=== PATIENT | female | born 1935 | race Caucasian/White ===

== ENCOUNTER 2020-07-05 16:35 | Inpatient (IN) | payer MEDICARE, BC ==
--- NOTE | 2020-07-05 17:19 | ED ---
General Adult HPI - General Chief complaint: Abdominal Pain Stated complaint: right side breast/rib pain Time Seen by Provider: 07/05/20 16:35 Source: patient, family, RN notes reviewed, old records reviewed Mode of arrival: wheelchair Limitations: no limitations - History of Present Illness Initial comments: This is an 85-year-old female presents emergency Department stating that about 12:30 this afternoon she started having some right upper quadrant abdominal pain and states it is very painful. Patient denies any recent injury. Patient denies increased pain with movement. Patient states she's not nauseated not vomiting and has had no diarrhea. Patient denies any chest pain difficulty breathing shortness of breath. Patient denies any recent fever or chills. Patient denies any dysuria hematuria urinary frequency. Patient denies any back pain. Patient denies doing any heavy lifting or activity it's outside of her normal activities. - Related Data Home Medications Medication Instructions Recorded Confirmed Alendronate Sodium [Fosamax] 70 mg PO MO 11/09/15 11/12/15 Furosemide [Lasix] 20 mg PO DAILY 11/09/15 11/12/15 Isosorbide Mononitrate ER [Imdur] 30 mg PO DAILY 11/09/15 11/09/15 Simvastatin [Zocor] 10 mg PO HS 11/09/15 11/12/15 amLODIPine [Norvasc] 5 mg PO DAILY 11/09/15 11/09/15 Allergies Allergy/AdvReac Type Severity Reaction Status Date / Time cephalexin monohydrate Allergy Rash/Hives Verified 07/05/20 16:37 [From Keflex] Review of Systems ROS Statement: Those systems with pertinent positive or pertinent negative responses have been documented in the HPI. ROS Other: All systems not noted in ROS Statement are negative. Past Medical History Past Medical History: Cancer, Diabetes Mellitus, GERD/Reflux, Hyperlipidemia, Hypertension, Osteoarthritis (OA) Additional Past Medical History / Comment(s): UTERINE CANCER, COLON CANCER, STRESS INCONTINENCE, DIET CONTROLLED DIABETIC History of Any Multi-Drug Resistant Organisms: None Reported Past Surgical History: Bowel Resection, Breast Surgery, Heart Catheterization, Hernia Repair, Hysterectomy Past Anesthesia/Blood Transfusion Reactions: No Reported Reaction Smoking Status: Current every day smoker Past Alcohol Use History: Rare Past Drug Use History: None Reported - Past Family History Mother Family Medical History: No Reported History General Exam - General Exam Comments Initial Comments: GENERAL: Patient is well-developed and well-nourished. Patient is nontoxic and well- hydrated and is in mild distress. ENT: Neck is soft and supple. No significant lymphadenopathy is noted. Oropharynx is clear. Moist mucous membranes. Neck has full range of motion without eliciting any pain. EYES: The sclera were anicteric and conjunctiva were pink and moist. Extraocular movements were intact and pupils were equal round and reactive to light. Eyelids were unremarkable. PULMONARY: Unlabored respirations. Good breath sounds bilaterally. No audible rales rhonchi or wheezing was noted. CARDIOVASCULAR: There is a regular rate and rhythm without any murmurs gallops or rubs. Patient has no pain of the ribs. ABDOMEN: Slight right upper quadrant abdominal pain SKIN: Skin is clear with no lesions or rashes and otherwise unremarkable. NEUROLOGIC: Patient is alert and oriented x3. Cranial nerves II through XII are grossly intact. Motor and sensory are also intact. Normal speech, volume and content. Symmetrical smile. MUSCULOSKELETAL: Normal extremities with adequate strength and full range of motion. LYMPHATICS: No significant lymphadenopathy is noted PSYCHIATRIC: Normal psychiatric evaluation. Limitations: no limitations Course Vital Signs 07/05/20 16:37 Temperature 97.6 F Pulse Rate 70 Respiratory 16 Rate Blood Pressure 127/64 O2 Sat by Pulse 97 Oximetry Medical Decision Making - Medical Decision Making EKG shows sinus rhythm with occasional PVC at a rate of 66 bpm NV interval 152 QRS is 82 QT interval 418 QTC is 438 per patient's EKG shows no ST segment depression Patient's gallbladder scan shows multiple gallstones and continue to be tender the right upper quadrant. Patient could have early cholecystitis so I spoke with Dr. Azul agreed to admit the patient admitted the patient I consult the surgery. - Lab Data Result diagrams: 07/05/20 17:18 07/05/20 17:18 Lab Results 07/05/20 07/05/20 07/05/20 Range/Units 17:18 17:18 17:18 WBC 8.4 (3.8-10.6) k/uL RBC 4.24 (3.80-5.40) m/uL Hgb 13.4 (11.4-16.0) gm/dL Hct 41.2 (34.0-46.0) % MCV 97.2 (80.0-100.0) fL MCH 31.7 (25.0-35.0) pg MCHC 32.6 (31.0-37.0) g/dL RDW 13.2 (11.5-15.5) % Plt Count 213 (150-450) k/uL Neutrophils % 76 % Lymphocytes % 14 % Monocytes % 8 % Eosinophils % 1 % Basophils % 0 % Neutrophils # 6.4 (1.3-7.7) k/uL Lymphocytes # 1.2 (1.0-4.8) k/uL Monocytes # 0.6 (0-1.0) k/uL Eosinophils # 0.1 (0-0.7) k/uL Basophils # 0.0 (0-0.2) k/uL Sodium 135 L (137-145) mmol/L Potassium 4.8 (3.5-5.1) mmol/L Chloride 106 (98-107) mmol/L Carbon Dioxide 23 (22-30) mmol/L Anion Gap 6 mmol/L BUN 15 (7-17) mg/dL Creatinine 0.54 (0.52-1.04) mg/dL Est GFR (CKD-EPI)AfAm >90 (>60 ml/min/1.73 sqM) Est GFR (CKD-EPI)NonAf 86 (>60 ml/min/1.73 sqM) Glucose 105 H (74-99) mg/dL Calcium 9.8 (8.4-10.2) mg/dL Total Bilirubin 0.8 (0.2-1.3) mg/dL AST 34 (14-36) U/L ALT 12 (4-34) U/L Alkaline Phosphatase 58 (38-126) U/L Troponin I (0.000-0.034) ng/mL Total Protein 6.7 (6.3-8.2) g/dL Albumin 3.8 (3.5-5.0) g/dL Amylase <30 L (30-110) U/L Lipase 101 (23-300) U/L Urine Color Yellow Urine Appearance Clear (Clear) Urine pH 5.0 (5.0-8.0) Ur Specific [place] 1.013 (1.001-1.035) Urine Protein Negative (Negative) Urine Glucose (UA) Negative (Negative) Urine Ketones Negative (Negative) Urine Blood Negative (Negative) Urine Nitrite Negative (Negative) Urine Bilirubin Negative (Negative) Urine Urobilinogen <2.0 (<2.0) mg/dL Ur Leukocyte Esterase Negative (Negative) 07/05/20 Range/Units 17:33 WBC (3.8-10.6) k/uL RBC (3.80-5.40) m/uL Hgb (11.4-16.0) gm/dL Hct (34.0-46.0) % MCV (80.0-100.0) fL MCH (25.0-35.0) pg MCHC (31.0-37.0) g/dL RDW (11.5-15.5) % Plt Count (150-450) k/uL Neutrophils % % Lymphocytes % % Monocytes % % Eosinophils % % Basophils % % Neutrophils # (1.3-7.7) k/uL Lymphocytes # (1.0-4.8) k/uL Monocytes # (0-1.0) k/uL Eosinophils # (0-0.7) k/uL Basophils # (0-0.2) k/uL Sodium (137-145) mmol/L Potassium (3.5-5.1) mmol/L Chloride (98-107) mmol/L Carbon Dioxide (22-30) mmol/L Anion Gap mmol/L BUN (7-17) mg/dL Creatinine (0.52-1.04) mg/dL Est GFR (CKD-EPI)AfAm (>60 ml/min/1.73 sqM) Est GFR (CKD-EPI)NonAf (>60 ml/min/1.73 sqM) Glucose (74-99) mg/dL Calcium (8.4-10.2) mg/dL Total Bilirubin (0.2-1.3) mg/dL AST (14-36) U/L ALT (4-34) U/L Alkaline Phosphatase (38-126) U/L Troponin I <0.012 (0.000-0.034) ng/mL Total Protein (6.3-8.2) g/dL Albumin (3.5-5.0) g/dL Amylase (30-110) U/L Lipase (23-300) U/L Urine Color Urine Appearance (Clear) Urine pH (5.0-8.0) Ur Specific [place] (1.001-1.035) Urine Protein (Negative) Urine Glucose (UA) (Negative) Urine Ketones (Negative) Urine Blood (Negative) Urine Nitrite (Negative) Urine Bilirubin (Negative) Urine Urobilinogen (<2.0) mg/dL Ur Leukocyte Esterase (Negative) Disposition Clinical Impression: Right upper quadrant abdominal pain Disposition: ADMITTED IP TO THIS HOSP Referrals: Herberth Sargent DO [Primary Care Provider] - 1-2 days Time of Disposition: 18:39
[2020-07-05 17:52] LABS: Appearance,Urine Clear (Clear); Bilirubin,Urine Negative (Negative); Blood,Urine Negative (Negative); Color,Urine Yellow; Glucose,Urine (UA) Negative (Negative); Ketones,Urine Negative (Negative); Leukocyte Esterase,Urine Negative (Negative); Nitrite,Urine Negative (Negative); Protein,Urine Negative (Negative); Specific Gravity,Urine 1.013 (1.001-1.035); Urobilinogen,Urine <2.0 mg/dL (<2.0)
[2020-07-05 18:01] LABS: Basophils % (A) 0 %; Eosinophils # (A) 0.1 k/uL (0-0.7); Eosinophils % (A) 1 %; HCT 41.2 % (34.0-46.0); HGB 13.4 gm/dL (11.4-16.0); Lymphocytes # (A) 1.2 k/uL (1.0-4.8); Lymphocytes % (A) 14 %; MCH 31.7 pg (25.0-35.0); MCHC 32.6 g/dL (31.0-37.0); MCV 97.2 fL (80.0-100.0); Mean Platelet Volume 7.6; Monocytes # (A) 0.6 k/uL (0-1.0); Monocytes % (A) 8 %; Neutrophils # (A) 6.4 k/uL (1.3-7.7); Neutrophils % (A) 76 %; Platelet Count 213 k/uL (150-450); RBC 4.24 m/uL (3.80-5.40); RDW 13.2 % (11.5-15.5); WBC 8.4 k/uL (3.8-10.6)
[2020-07-05 18:13] LABS: ALT 12 U/L (4-34); AST 34 U/L (14-36); African American GFR (CKD) >90 (>60 ml/min/1.73 sqM); Albumin 3.8 g/dL (3.5-5.0); Alkaline Phosphatase 58 U/L (38-126); Amylase <30 U/L (30-110); Anion Gap 6 mmol/L; Blood Urea Nitrogen 15 mg/dL (7-17); Calcium 9.8 mg/dL (8.4-10.2); Carbon Dioxide 23 mmol/L (22-30); Chloride 106 mmol/L (98-107); Glucose 105 mg/dL (74-99); Non-African American GFR(CKD) 86 (>60 ml/min/1.73 sqM); Potassium 4.8 mmol/L (3.5-5.1); Sodium 135 mmol/L (137-145); Total Bilirubin 0.8 mg/dL (0.2-1.3); Total Protein 6.7 g/dL (6.3-8.2)
--- NOTE | 2020-07-05 18:22 | US ---
EXAMINATION TYPE: US gallbladder DATE OF EXAM: 07/05/2020 COMPARISON: NONE CLINICAL HISTORY: Right upper quadrant abdominal pain. severe RUQ pain today EXAM MEASUREMENTS: Liver Length: 19.6 cm Gallbladder Wall: 0.2 cm CBD: 0.7 cm Right Kidney: 9.2 x 4.4 x 4.4 cm Pancreas: wnl Liver: enlarged Gallbladder: multiple posterior stones seen in slightly hydropic GB Evidence for sonographic Real's sign: yes CBD: wnl Right Kidney: wnl IMPRESSION: There are numerous gallstones. No dilated ducts.. There was tenderness over the gallbladd er that could relate to cholecystitis.
[2020-07-05] MEDS ORDERED: SODIUM CHLORIDE 0.9% 1,000 ML IV ONE (18:39)
[2020-07-05] MEDS ORDERED: MORPHINE SULFATE 2 MG/ML SYRINGE IVP STA (19:27)
[2020-07-06] MEDS ORDERED: ACETAMINOPHEN TAB 325 MG TAB PO PRN (05:28)
[2020-07-06] MEDS: MORPHINE SULFATE 2 MG/ML SYRINGE IVP PRN ×2 (05:41→12:30)
[2020-07-06] MEDS: LETROZOLE 2.5 MG TAB PO SCH (08:00)
[2020-07-06] MEDS: amLODIPine 5 MG TAB PO SCH (08:00)
[2020-07-06] MEDS: ISOSORBIDE MONONITRATE ER 30 MG TAB.ER.24H PO SCH (08:00)
[2020-07-06] MEDS: CHOLECALCIFEROL 1,000 UNIT TAB PO SCH (08:07)
[2020-07-06] MEDS: CALCIUM CARB-VIT D 500MG-200UN 1 EACH TAB PO SCH (08:07)
[2020-07-06] MEDS ORDERED: MELOXICAM 7.5 MG TAB PO PRN (09:00)
[2020-07-06] MEDS ORDERED: FUROSEMIDE 20 MG TAB PO SCH (09:00)
[2020-07-06] MEDS: ONDANSETRON 4 MG/2 ML VIAL IVP PRN ×2 (09:25→19:41)
--- NOTE | 2020-07-06 15:02 | P.GSCN ---
History of Present Illness Consult date: 07/06/20 Reason for Consult: Abdominal pain, cholelithiasis History of present illness: The patient is a 85-year-old female well-known to me. She developed abdominal pain on Sunday about 12:30. Was in the right upper quadrant. Very severe. It began getting worse through the day. She had nausea on the current to the emergency department. No vomiting. No fevers or chills. No jaundice, tea- colored urine or acholic stool. No prior history of gallbladder attacks. A granddaughter has had cholecystectomy but otherwise no one in the family said gallbladder disease. No chest pain or shortness of breath. The patient did require pain medication about an hour and a half to 2 hours ago. Review of Systems All systems: negative Past Medical History Past Medical History: Cancer, Diabetes Mellitus, GERD/Reflux, Hyperlipidemia, Hypertension, Osteoarthritis (OA) Additional Past Medical History / Comment(s): UTERINE CANCER, COLON CANCER, STR ESS INCONTINENCE, DIET CONTROLLED DIABETIC History of Any Multi-Drug Resistant Organisms: None Reported Past Surgical History: Bowel Resection, Breast Surgery, Heart Catheterization, Hernia Repair, Hysterectomy Past Anesthesia/Blood Transfusion Reactions: No Reported Reaction Past Psychological History: No Psychological Hx Reported Smoking Status: Never smoker Past Alcohol Use History: Rare Past Drug Use History: None Reported - Past Family History Mother Family Medical History: No Reported History Medications and Allergies Home Medications Medication Instructions Recorded Confirmed Type Alendronate Sodium [Fosamax] 70 mg PO MO 11/09/15 07/05/20 History Furosemide [Lasix] 20 mg PO DAILY 11/09/15 07/05/20 History Isosorbide Mononitrate ER [Imdur] 30 mg PO DAILY 11/09/15 07/05/20 History Simvastatin [Zocor] 10 mg PO HS 11/09/15 07/05/20 History amLODIPine [Norvasc] 5 mg PO DAILY 11/09/15 07/05/20 History Acetaminophen [Tylenol Arthritis] 650 mg PO DAILY PRN 07/05/20 07/05/20 History Calcium Carbonate/Vitamin D3 1 tab PO DAILY 07/05/20 07/05/20 History [Calcium 600-Vit D3 200 Tablet] Cholecalciferol [Vitamin D3 (25 3,000 unit PO DAILY 07/05/20 07/05/20 History Mcg = 1000 Iu)] Letrozole [Femara] 2.5 mg PO DAILY 07/05/20 07/05/20 History Meloxicam [Mobic] 7.5 mg PO BID PRN 07/05/20 07/05/20 History Allergies Allergy/AdvReac Type Severity Reaction Status Date / Time cephalexin monohydrate Allergy Rash/Hives Verified 07/05/20 21:35 [From Keflex] Surgical - Exam Osteopathic Statement: *. No significant issues noted on an osteopathic structural exam other than those noted in the History and Physical/Consult. Vital Signs Temp Pulse Resp BP Pulse Ox 97.6 F 70 16 127/64 97 07/05/20 16:37 07/05/20 16:37 07/05/20 16:37 07/05/20 16:37 07/05/20 16:37 - General well developed, well nourished, no distress - Neck trachea midline - Respiratory normal respiratory effort, clear to auscultation - Cardiovascular Rhythm: regular - Abdomen Abdomen: soft, tender (Minimal right upper quadrant), surgical scars, no guarding, no rigid, no rebound, no distended Results - Labs 07/05/20 17:18 07/05/20 17:18 Abnormal Lab Results - Last 24 Hours (Table) 07/05/20 Range/Units 17:18 Sodium 135 L (137-145) mmol/L Glucose 105 H (74-99) mg/dL Amylase <30 L (30-110) U/L Diabetes panel 07/05/20 Range/Units 17:18 Sodium 135 L (137-145) mmol/L Potassium 4.8 (3.5-5.1) mmol/L Chloride 106 (98-107) mmol/L Carbon Dioxide 23 (22-30) mmol/L BUN 15 (7-17) mg/dL Creatinine 0.54 (0.52-1.04) mg/dL Glucose 105 H (74-99) mg/dL Calcium 9.8 (8.4-10.2) mg/dL AST 34 (14-36) U/L ALT 12 (4-34) U/L Alkaline Phosphatase 58 (38-126) U/L Total Protein 6.7 (6.3-8.2) g/dL Albumin 3.8 (3.5-5.0) g/dL Calcium panel 07/05/20 Range/Units 17:18 Calcium 9.8 (8.4-10.2) mg/dL Albumin 3.8 (3.5-5.0) g/dL Pituitary panel 07/05/20 Range/Units 17:18 Sodium 135 L (137-145) mmol/L Potassium 4.8 (3.5-5.1) mmol/L Chloride 106 (98-107) mmol/L Carbon Dioxide 23 (22-30) mmol/L BUN 15 (7-17) mg/dL Creatinine 0.54 (0.52-1.04) mg/dL Glucose 105 H (74-99) mg/dL Calcium 9.8 (8.4-10.2) mg/dL Adrenal panel 07/05/20 Range/Units 17:18 Sodium 135 L (137-145) mmol/L Potassium 4.8 (3.5-5.1) mmol/L Chloride 106 (98-107) mmol/L Carbon Dioxide 23 (22-30) mmol/L BUN 15 (7-17) mg/dL Creatinine 0.54 (0.52-1.04) mg/dL Glucose 105 H (74-99) mg/dL Calcium 9.8 (8.4-10.2) mg/dL Total Bilirubin 0.8 (0.2-1.3) mg/dL AST 34 (14-36) U/L ALT 12 (4-34) U/L Alkaline Phosphatase 58 (38-126) U/L Total Protein 6.7 (6.3-8.2) g/dL Albumin 3.8 (3.5-5.0) g/dL - Imaging US - abdomen: report reviewed Assessment and Plan (1) Cholelithiasis Current Visit: Yes Status: Acute Code(s): K80.20 - CALCULUS OF GALLBLADDER W/O CHOLECYSTITIS W/O OBSTRUCTION SNOMED Code(s): 955625316 (2) Biliary colic Current Visit: Yes Status: Acute Code(s): K80.50 - CALCULUS OF BILE DUCT W/O CHOLANGITIS OR CHOLECYST W/O OBST SNOMED Code(s): 26979403 (3) Breast cancer Current Visit: Yes Status: Acute Code(s): C50.919 - MALIGNANT NEOPLASM OF UNSP SITE OF UNSPECIFIED FEMALE BREAST SNOMED Code(s): 249582988 (4) History of colon cancer Current Visit: Yes Status: Acute Code(s): Z85.038 - PERSONAL HISTORY OF MALIGNANT NEOPLASM OF LARGE INTESTINE SNOMED Code(s): 282926822 (5) Diabetes Current Visit: Yes Status: Acute Code(s): E11.9 - TYPE 2 DIABETES MELLITUS WITHOUT COMPLICATIONS SNOMED Code(s): 50736343 (6) Hypertension Current Visit: Yes Status: Acute Code(s): I10 - ESSENTIAL (PRIMARY) HYPERTENSION SNOMED Code(s): 97216557 (7) Hydrops of gallbladder Current Visit: Yes Status: Acute Code(s): K82.1 - HYDROPS OF GALLBLADDER SNOMED Code(s): 91376869 Plan: Due to persistent pain and multiple gallstones, I recommended laparoscopic cholecystectomy possible open. She has had previous right hemicolectomy done laparoscopically so there is a slightly increased chance of requiring a open cho lecystectomy. The procedure, risks, complications were discussed. Questions were encouraged and answered. She'll be given prophylactic antibiotics. DVT and ulcer prophylaxis. Further recommendations to follow.
[2020-07-06] MEDS ORDERED: IV FLUID CONTINUATION 400 ML IV ONE (16:26)
[2020-07-06] MEDS ORDERED: SUCCINYLCHOLINE CHLORIDE 100 MG/5 ML SYR IV ONE (16:36)
[2020-07-06] MEDS ORDERED: ROCURONIUM BROMIDE 10 MG/ML 5 ML VIAL IV ONE (16:36)
[2020-07-06] MEDS ORDERED: PROPOFOL 10 MG/ML 20 ML VIAL IV ONE (16:36)
[2020-07-06] MEDS ORDERED: LIDOCAINE 1% INJ 10MG/ML (20 ML MDV) ONE (16:36)
[2020-07-06] MEDS ORDERED: fentaNYL (PF) 50 MCG/ML 2 ML AMP ONE (16:36)
[2020-07-06 16:50] LABS: Glucose,Whole Blood 104 mg/dL (75-99)
[2020-07-06] MEDS ORDERED: LIDOCAINE 1%-EPI 1:100,000 20 ML VIAL SQ ONE ×2 (16:57)
[2020-07-06] MEDS ORDERED: BUPIVACAINE (PF) 0.25% 30 ML VIAL SQ ONE ×2 (16:57)
[2020-07-06] MEDS ORDERED: LEVOFLOXACIN 500MG-D5W PMX 500 MG in DEXTROSE/WATER 1 100ML.BAG IVPB ONE (17:00)
[2020-07-06] MEDS ORDERED: SODIUM CHLORIDE 0.9% 500 ML 500 ML IV ONE (17:09)
[2020-07-06] MEDS ORDERED: GELATIN SPONGE,ABSORB (LARGE) 1 EACH SPONGE TOPICAL ONE (18:15)
[2020-07-06] MEDS: HYDROmorphone 1 MG/ML 1 ML SYRINGE IVP ONE ×3 (18:42→19:02)
[2020-07-06] MEDS ORDERED: NALOXONE 0.4 MG/ML 1 ML VIAL IV PRN (18:42)
[2020-07-06] MEDS ORDERED: METOCLOPRAMIDE 5 MG/ML 2 ML VIAL IVP PRN (18:42)
[2020-07-06] MEDS ORDERED: HYDROmorphone 0.5 MG/0.5 ML SYRINGE IVP PRN (18:42)
--- NOTE | 2020-07-06 18:42 | P.OP ---
Date of Procedure: 07/06/20 Preoperative Diagnosis: Cholelithiasis, cholecystitis, hydrops of the gallbladder Postoperative Diagnosis: Cholelithiasis, acute cholecystitis, hydrops of the gallbladder, cystic duct obstruction Anesthesia: KARINA Surgeon: Lissett Weaver Estimated Blood Loss (ml): 200 Pathology: other (Gallbladder and bile culture) Condition: stable Disposition: PACU Indications for Procedure: The patient presented with acute abdominal pain and ultrasound showing gallbladder wall thickening and gallstones. She was continuing to have pain so laparoscopic cholecystectomy was recommended Description of Procedure: The patient's taken the operative suite where she is prepped and draped in the usual sterile manner under general endotracheal anesthetic. An incision is made superiorly and to the right of the umbilicus. The subcutaneous tissues were divided. A mesh was then encountered superficial to the fascia. Therefore a subxiphoid incision was made. The fascia was grasped and incised. The peritoneum was grasped and incised. A finger sweep was carried out. A balloon trocar was inserted and pneumoperitoneum was established with CO2 gas. She had dense adhesions of omentum and small bowel to the anterior abdominal wall. Some additional trochars were placed. The adhesions are then sharply lysed until the area was free enough to allow for placement of the trocar for the camera. The gallbladder was markedly distended and edematous. Some adhesions were sharply taken down but the gallbladder was too enlarged and adherent to felt to be safely removed laparoscopically. Therefore the trochars were removed. The pneumoperitoneum was released. The abdomen was entered through a right subcostal incision. Small bleeding points are controlled with electrocautery. A self-retaining retractor was placed. The adhesions are bluntly taken down off the fundus. The gallbladder was too edematous and distended to grasp with a ring forcep. It was therefore decompressed of about 200 mL's of white bile. That was sent for culture. It was still markedly edematous and hard to identify the cystic duct area clearly. Therefore the gallbladder was taken down from the liver in a domed down manner. The cystic artery was then identified. It was clipped and cut. An additional small vessel was clipped and cut. The cystic duct was identified. There several small stones and a which are milked medial to lateral. A right angle clamp was then used to occlude the cystic duct and th e gallbladder was amputated and passed off. The cystic duct remnant was closed with 0 Vicryl suture. Small bleeding points on the liver bed were controlled with electrocautery. A piece of Surgicel was placed into the liver bed. The surrounding bowel and omentum were examined and noted to be hemostatic. The fascia at the trocar site to the right superior to the umbilicus was closed with 0 Vicryl. The subcostal incision was closed in a 2 layered manner using #1 Vicryl. The skin incisions were closed with alex. She tolerated the procedure without difficulty and was taken recovery room in satisfactory condition. According to or personnel, all counts were correct.
[2020-07-06] MEDS ORDERED: LACTATED RINGERS 1,000 ML IV ONE (18:45)
[2020-07-06] MEDS ORDERED: fentaNYL (PF) 50 MCG/ML 2 ML AMP IVP ONE (19:13)
--- NOTE | 2020-07-06 20:16 | P.HPIM ---
History of Present Illness H&P Date: 07/06/20 Chief Complaint: abdominal pain History of presenting complaint: This is a 85-year-old patient of Dr. Sargent. 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 Daughter is at the bedside. But for about 1 day patient been having right upper quadrant pain. But he was limited there. No nausea vomiting. No fever no chills. Ultrasound showing a gallstone. No CBD duct dilatation. General surgery was consulted for the same. No fever no chills Review of systems: GEN.: Tired EYES: None HEENT: None NECK: None RESPIRATORY: None CARDIOVASCULAR: None GASTROINTESTINAL: As above GENITOURINARY: None MUSCULOSKELETAL: Joint pains] LYMPHATICS: None HEMATOLOGICAL: None PSYCHIATRY: None NEUROLOGICAL: Uses a walker Past medical history to include: Diabetes, GERD, hypertension, hyperlipidemia, osteoarthritis, uterine cancer, co lauren cancer treated with surgery, urinary stress incontinence, diet controlled diabetes, left breast cancer treated with lumpectomy Social history: This is a daughter. No history of smoking or alcohol. Family history: Reviewed, noncontributory to presentation Physical examination: VITAL SIGNS: 97.6, 70, 16, 127/64, 97% room air GENERAL: BMI 38.8, laying in bed, awake a bit tired. EYES: Pupils equal. Conjunctiva normal. HEENT: External appearance of nose and ears normal, oral cavity grossly normal. NECK: JVD not raised; masses not palpable. HEART: First and second heart sounds are normal; no edema. LUNGS: Respiratory rate normal; clear to auscultation. ABDOMEN: Soft, right upper quadrant tenderness no guarding rigidity, liver spleen not palpable, no masses palpable. PSYCH: Alert and oriented x3; mood and affect normal. MUSCULAR skeletal: Evidence of OA NEUROLOGICAL: Cranial nerves grossly intact; no facial asymmetry, power and sensation grossly intact. LYMPHATICS: No lymph nodes palpable in the axilla and neck INVESTIGATIONS, reviewed in the clinical context: White count 8.4 hemoglobin 13.4 platelets 213 potassium 4.8 creatinine 0.5 for amylase less than 30 lipase 101 EKG tracing personally reviewed by me-no sinus rhythm Liver ultrasound-numerous gallstones no dilated ducts. Assessment: -Acute symptomatic choledocholithiasis. No obvious evidence of infection. No CBD dilation. -Obesity BMI 38.8 Diabetes mellitus type 2 on oral hypoglycemic -GERD -Hyperlipidemia -Essential hypertension -Primary osteoarthritis -Urinary stress incontinence Plan: Home medications resumed. Pain control in place. Lovenox for DVT prophylaxis. General surgery was consulted. Patient will need surgery at some point. Care was discussed the patient daughter the bedside. Question also. General surgery was consulted. Past Medical History Past Medical History: Cancer, Diabetes Mellitus, GERD/Reflux, Hyperlipidemia, Hypertension, Osteoarthritis (OA) Additional Past Medical History / Comment(s): UTERINE CANCER, COLON CANCER, STRESS INCONTINENCE, DIET CONTROLLED DIABETIC History of Any Multi-Drug Resistant Organisms: None Reported Past Surgical History: Bowel Resection, Breast Surgery, Heart Catheterization, Hernia Repair, Hysterectomy Past Anesthesia/Blood Transfusion Reactions: No Reported Reaction Past Psychological History: No Psychological Hx Reported Smoking Status: Never smoker Past Alcohol Use History: Rare Past Drug Use History: None Reported - Past Family History Mother Family Medical History: No Reported History Medications and Allergies Home Medications Medication Instructions Recorded Confirmed Type Alendronate Sodium [Fosamax] 70 mg PO MO 11/09/15 07/05/20 History Furosemide [Lasix] 20 mg PO DAILY 11/09/15 07/05/20 History Isosorbide Mononitrate ER [Imdur] 30 mg PO DAILY 11/09/15 07/05/20 History Simvastatin [Zocor] 10 mg PO HS 11/09/15 07/05/20 History amLODIPine [Norvasc] 5 mg PO DAILY 11/09/15 07/05/20 History Acetaminophen [Tylenol Arthritis] 650 mg PO DAILY PRN 07/05/20 07/05/20 History Calcium Carbonate/Vitamin D3 1 tab PO DAILY 07/05/20 07/05/20 History [Calcium 600-Vit D3 200 Tablet] Cholecalciferol [Vitamin D3 (25 3,000 unit PO DAILY 07/05/20 07/05/20 History Mcg = 1000 Iu)] Letrozole [Femara] 2.5 mg PO DAILY 07/05/20 07/05/20 History Meloxicam [Mobic] 7.5 mg PO BID PRN 07/05/20 07/05/20 History Allergies Allergy/AdvReac Type Severity Reaction Status Date / Time cephalexin monohydrate Allergy Rash/Hives Verified 07/05/20 21:35 [From Keflex] Physical Exam Vitals: Vital Signs Temp Pulse Pulse Resp BP BP Pulse Ox 07/06/20 09:00 71 16 07/06/20 08:01 98.0 F 71 16 140/58 07/06/20 03:20 97.8 F 70 15 121/56 94 L 07/05/20 22:45 98.0 F 70 16 133/54 94 L 07/05/20 21:24 98.5 F 75 16 126/59 95 07/05/20 21:20 98.5 F 75 16 126/59 95 07/05/20 16:37 97.6 F 70 16 127/64 97 Intake and Output 07/05/20 07/06/20 07/06/20 22:59 06:59 14:59 Intake Total 525 Balance 525 Intake: Intake, IV Titration 525 Amount Sodium Chloride 0.9% 1, 525 000 ml @ 75 mls/hr IV . [id number] Rx#:[id number] Other: Voiding Method Toilet Toilet # Voids 1 1 Weight 87.09 kg Results CBC & Chem 7: 07/05/20 17:18 07/05/20 17:18 Labs: Abnormal Lab Results - Last 24 Hours (Table) 07/05/20 Range/Units 17:18 Sodium 135 L (137-145) mmol/L Glucose 105 H (74-99) mg/dL Amylase <30 L (30-110) U/L Thrombosis Risk Factor Assmnt - Choose All That Apply Any of the Below Risk Factors Present?: Yes Each Factor Represents 1 point: Obesity (BMI >25) Other Risk Factors: No Other congenital or acquired thrombophilia - If yes, enter type in comment: No Thrombosis Risk Factor Assessment Total Risk Factor Score: 1 Thrombosis Risk Factor Assessment Level: Low Risk
[2020-07-06] MEDS: ATORVASTATIN 10 MG TAB PO SCH (20:50)
[2020-07-06 21:49] LABS: Glucose,Whole Blood 182 mg/dL (75-99)
[2020-07-06] MEDS: HEPARIN SODIUM,PORCINE 5,000 UNIT/ML 1 ML VIAL SQ SCH (21:58)
--- NOTE | 2020-07-07 09:31 | P.PN ---
Subjective Progress Note Date: 07/07/20 Principal diagnosis: Status post open cholecystectomy for acute cholecystitis The patient is postop day 1 open cholecystectomy for acute cholecystitis. She has expected incisional pain. Denies any chest pain or shortness of breath. Tolerated a clear liquid diet without nausea or vomiting. Objective - Vital Signs Vital signs: Vital Signs Temp 97.3 F L 07/07/20 07:00 Pulse 78 07/07/20 07:00 Resp 18 07/07/20 07:00 BP 119/70 07/07/20 07:00 Pulse Ox 96 07/07/20 03:05 Intake & Output 07/06/20 07/07/20 07/07/20 18:59 06:59 18:59 Intake Total 975 950 Output Total 200 605 Balance 775 345 Weight 87.09 kg Intake: IV 975 Intake, IV Titration 800 Amount Sodium Chloride 0.9% 1, 800 000 ml @ 75 mls/hr IV . [id number] ONE Rx#:[id number] Oral 150 Output: Urine 605 Estimated Blood Loss 200 Other: # Voids 1 1 - Constitutional General appearance: Present: cooperative, no acute distress - Respiratory Respiratory: bilateral: CTA, diminished (mildly at the bases) - Cardiovascular Rhythm: regular - Gastrointestinal General gastrointestinal: Present: decreased bowel sounds Localized gastrointestinal: surgical scar: diffuse (dressing is intact, clean and dry) - Labs CBC & Chem 7: 07/05/20 17:18 07/05/20 17:18 Labs: Abnormal Lab Results - Last 24 Hours (Table) 07/06/20 07/06/20 Range/Units 16:36 21:46 POC Glucose (mg/dL) 104 H 182 H (75-99) mg/dL Microbiology - Last 24 Hours (Table) 07/06/20 18:30 Gram Stain - Preliminary Aspirate Body Fluid Culture - Preliminary 07/06/20 18:30 Anaerobic Culture - Preliminary Other - Other Assessment and Plan (1) Cholelithiasis Current Visit: Yes Status: Acute Code(s): K80.20 - CALCULUS OF GALLBLADDER W/O CHOLECYSTITIS W/O OBSTRUCTION SNOMED Code(s): 747986627 (2) Breast cancer Current Visit: Yes Status: Acute Code(s): C50.919 - MALIGNANT NEOPLASM OF UNSP SITE OF UNSPECIFIED FEMALE BREAST SNOMED Code(s): 266083280 (3) History of colon cancer Current Visit: Yes Status: Acute Code(s): Z85.038 - PERSONAL HISTORY OF MALIGNANT NEOPLASM OF LARGE INTESTINE SNOMED Code(s): 551488925 (4) Diabetes Current Visit: Yes Status: Acute Code(s): E11.9 - TYPE 2 DIABETES MELLITUS WITHOUT COMPLICATIONS SNOMED Code(s): 80879271 (5) Hypertension Current Visit: Yes Status: Acute Code(s): I10 - ESSENTIAL (PRIMARY) H YPERTENSION SNOMED Code(s): 61490214 (6) Hydrops of gallbladder Current Visit: Yes Status: Acute Code(s): K82.1 - HYDROPS OF GALLBLADDER SNOMED Code(s): 13599795 (7) Acute cholecystitis due to biliary calculus Current Visit: Yes Status: Acute Code(s): K80.00 - CALCULUS OF GALLBLADDER W ACUTE CHOLECYST W/O OBSTRUCTION SNOMED Code(s): 49719938843010 Plan: Gradually increase diet as tolerated. Encourage incentive spirometry. Encourage her to get up and ambulate. We will continue IV antibiotics pending bile culture.
[2020-07-07] MEDS: LETROZOLE 2.5 MG TAB PO SCH (09:44)
[2020-07-07] MEDS: amLODIPine 5 MG TAB PO SCH (09:45)
[2020-07-07] MEDS: ISOSORBIDE MONONITRATE ER 30 MG TAB.ER.24H PO SCH (09:45)
[2020-07-07] MEDS: CALCIUM CARB-VIT D 500MG-200UN 1 EACH TAB PO SCH (09:45)
[2020-07-07] MEDS: HEPARIN SODIUM,PORCINE 5,000 UNIT/ML 1 ML VIAL SQ SCH ×2 (09:46→19:59)
[2020-07-07] MEDS: CHOLECALCIFEROL 1,000 UNIT TAB PO SCH (09:46)
[2020-07-07] MEDS: PANTOPRAZOLE 40 MG/10 ML VIAL IV SCH (09:47)
[2020-07-07 11:17] LABS: African American GFR (CKD) >90 (>60 ml/min/1.73 sqM); Anion Gap 8 mmol/L; Blood Urea Nitrogen 10 mg/dL (7-17); Calcium 8.7 mg/dL (8.4-10.2); Carbon Dioxide 23 mmol/L (22-30); Chloride 106 mmol/L (98-107); Glucose 120 mg/dL (74-99); Non-African American GFR(CKD) 90 (>60 ml/min/1.73 sqM); Potassium 3.4 mmol/L (3.5-5.1); Sodium 137 mmol/L (137-145)
[2020-07-07 11:19] LABS: Basophils % (A) 0 %; Eosinophils % (A) 0 %; HCT 37.9 % (34.0-46.0); HGB 11.8 gm/dL (11.4-16.0); Hypochromasia Slight; Lymphocytes % (A) 9 %; MCH 31.2 pg (25.0-35.0); MCHC 31.1 g/dL (31.0-37.0); MCV 100.2 fL (80.0-100.0); Mean Platelet Volume 7.8; Monocytes # (A) 0.9 k/uL (0-1.0); Monocytes % (A) 8 %; Neutrophils # (A) 9.2 k/uL (1.3-7.7); Neutrophils % (A) 81 %; Platelet Count 164 k/uL (150-450); RBC 3.78 m/uL (3.80-5.40); RDW 13.2 % (11.5-15.5); WBC 11.3 k/uL (3.8-10.6)
[2020-07-07] MEDS: HYDROcodone/APAP 5-325MG 1 EACH TAB PO PRN ×2 (12:07→22:11)
[2020-07-07] MEDS: LEVOFLOXACIN 500MG-D5W PMX 500 MG in DEXTROSE/WATER 1 100ML.BAG IVPB SCH (16:47)
--- NOTE | 2020-07-07 17:47 | P.PN ---
Progress Note - Text Progress Note Date: 07/07/20 Chief Complaint: abdominal pain History of presenting complaint: This is a 85-year-old patient of Dr. Sargent. 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 Daughter is at the bedside. But for about 1 day patient been having right upper quadrant pain. But he was limited there. No nausea vomiting. No fever no chills. Ultrasound showing a gallstone. No CBD duct dilatation. General surgery was consulted for the same. No fever no chills. Patient underwent cholecystectomy. Found to have gallstones and acute cholecystitis. Hydrops of the gallbladder and cystic duct obstruction. Surgical drain was placed. Today-sitting up in a chair. Eating lunch. Advance to regular diet. Some pain is present. No nausea vomiting. Review of systems: Was done for constitutional, cardiovascular, GI, pulmonary. relevant finding as above Active Medications Acetaminophen (Tylenol Tab) 650 mg PO DAILY PRN PRN Reason: arthritis pain Hydrocodone Bitart/Acetaminophen ([place] 5-325) 1 each PO Q4HR PRN PRN Reason: Mild Pain Last Admin: 07/07/20 12:07 Dose: 1 each Documented by: Amlodipine Besylate (Norvasc) 5 mg PO DAILY [facility] [place] Last Admin: 07/07/20 09:45 Dose: 5 mg Documented by: Atorvastatin Calcium (Lipitor) 10 mg PO HS [facility] [place] Last Admin: 07/06/20 20:50 Dose: Not Given Documented by: Calcium Carbonate (Oscal 500+D) 1 each PO DAILY [facility] [place] Last Admin: 07/07/20 09:45 Dose: 1 each Documented by: Cholecalciferol (Vitamin D3 (25 Mcg = 1000 Iu)) 3,000 unit PO DAILY [facility] [place] Last Admin: 07/07/20 09:46 Dose: 3,000 unit Documented by: Heparin Sodium (Porcine) (Heparin) 5,000 unit SQ Q12HR [facility] [place] Last Admin: 07/07/20 09:46 Dose: 5,000 unit Documented by: Hydromorphone HCl (Dilaudid) 0.5 mg IVP Q3HR PRN PRN Reason: Moderate to Severe Pain Last Admin: 07/07/20 06:16 Dose: 0.5 mg Documented by: Levofloxacin 500 mg/ IV (Solution) 100 mls @ 100 mls/hr IVPB Q24H [facility] [place] Last Admin: 07/07/20 16:47 Dose: 100 mls/hr Documented by: Isosorbide Mononitrate (Imdur) 30 mg PO DAILY [facility] [place] Last Admin: 07/07/20 09:45 Dose: 30 mg Documented by: Letrozole (Femara) 2.5 mg PO DAILY [facility] [place] Last Admin: 07/07/20 09:44 Dose: 2.5 mg Documented by: Meloxicam (Mobic) 7.5 mg PO BID PRN PRN Reason: arthritis pain Metoclopramide HCl (Reglan) 10 mg IVP Q6H PRN PRN Reason: Nausea And Vomiting Morphine Sulfate (Morphine Sulfate (Inj)) 1 mg IVP Q4H PRN PRN Reason: Pain/Discomfort Last Admin: 07/06/20 12:30 Dose: 1 mg Documented by: Naloxone HCl (Narcan) 0.2 mg IV Q2M PRN PRN Reason: Opioid Reversal Pantoprazole Sodium (Protonix) 40 mg IV DAILY [facility] [place] Last Admin: 07/07/20 09:47 Dose: 40 mg Documented by: Physical examination: VITAL SIGNS: 97.9, 94, 20, 130/67 94% room air GENERAL: Sitting up in a chair, eating lunch EYES: Pupils equal. Conjunctiva normal. HEENT: External appearance of nose and ears normal, oral cavity grossly normal. NECK: JVD not raised; masses not palpable. HEART: First and second heart sounds are normal; no edema. LUNGS: Respiratory rate normal; clear to auscultation. ABDOMEN: Soft, right upper quadrant tenderness no guarding rigidity, liver spleen not palpable, no masses palpable. Surgical drain. PSYCH: Alert and oriented x3; mood and affect normal. MUSCULAR skeletal: Evidence of OA INVESTIGATIONS, reviewed in the clinical context: White count 11.3 hemoglobin 11.8 potassium 3.4 creatinine 0.47 Previous testing White count 8.4 hemoglobin 13.4 platelets 213 potassium 4.8 creatinine 0.5 for amylase less than 30 lipase 101 EKG tracing personally reviewed by me-no sinus rhythm Liver ultrasound-numerous gallstones no dilated ducts. Assessment: -Acute symptomatic choledocholithiasis. With acute cholecystitis, and hydrops gallbladder. Status post cholecystectomy with the surgical drain.. -Obesity BMI 38.8 -Diabetes mellitus type 2 on oral hypoglycemic -GERD -Hyperlipidemia -Essential hypertension -Primary osteoarthritis -Urinary stress incontinence Plan: Patient remains on IV Levaquin. Diet has been advanced by surgery. Encouraged to ambulate. Repeat CBC in the morning.
[2020-07-07] MEDS: ATORVASTATIN 10 MG TAB PO SCH (19:59)
[2020-07-08 07:16] LABS: HGB 10.8 gm/dL (11.4-16.0); MCH 31.6 pg (25.0-35.0); MCHC 31.8 g/dL (31.0-37.0); MCV 99.3 fL (80.0-100.0); Mean Platelet Volume 7.8; Platelet Count 170 k/uL (150-450); RBC 3.43 m/uL (3.80-5.40); RDW 13.3 % (11.5-15.5); WBC 10.8 k/uL (3.8-10.6)
[2020-07-08] MEDS: HEPARIN SODIUM,PORCINE 5,000 UNIT/ML 1 ML VIAL SQ SCH ×2 (08:53→19:58)
[2020-07-08] MEDS: ISOSORBIDE MONONITRATE ER 30 MG TAB.ER.24H PO SCH (08:53)
[2020-07-08] MEDS: PANTOPRAZOLE 40 MG/10 ML VIAL IV SCH (08:53)
[2020-07-08] MEDS: CHOLECALCIFEROL 1,000 UNIT TAB PO SCH (08:53)
[2020-07-08] MEDS: amLODIPine 5 MG TAB PO SCH (08:53)
[2020-07-08] MEDS: CALCIUM CARB-VIT D 500MG-200UN 1 EACH TAB PO SCH (08:53)
[2020-07-08] MEDS ORDERED: traMADol 50 MG TAB PO PRN ×2 (09:22)
--- NOTE | 2020-07-08 11:06 | P.PN ---
Subjective Progress Note Date: 07/08/20 Principal diagnosis: Status post open cholecystectomy for acute cholecystitis The patient is seen on rounds. She had a "rough "night with confusion. Nursing felt it may have been due to receiving [place]. She is better today. Has some expected incisional pain. No nausea or vomiting. She was able to eat well last night. Objective - Vital Signs Vital signs: Vital Signs Temp 98.8 F 07/08/20 08:01 Pulse 83 07/08/20 08:01 Resp 17 07/08/20 08:01 BP 146/73 07/08/20 08:01 Pulse Ox 91 L 07/08/20 08:01 Intake & Output 07/07/20 07/08/20 07/08/20 18:59 06:59 18:59 Other: Voiding Method Toilet Toilet # Voids 2 1 - Constitutional General appearance: Present: cooperative, no acute distress - Respiratory Respiratory: bilateral: CTA - Cardiovascular Rhythm: regular - Gastrointestinal General gastrointestinal: Present: normal bowel sounds, soft Localized gastrointestinal: surgical scar: diffuse (incisions healing without cellulitis or ecchymosis) - Labs CBC & Chem 7: 07/08/20 06:31 07/07/20 10:06 Labs: Abnormal Lab Results - Last 24 Hours (Table) 07/07/20 07/07/20 07/08/20 Range/Units 10:06 10:06 06:31 WBC 11.3 H 10.8 H (3.8-10.6) k/uL RBC 3.78 L 3.43 L (3.80-5.40) m/uL Hgb 10.8 L (11.4-16.0) gm/dL MCV 100.2 H (80.0-100.0) fL Neutrophils # 9.2 H (1.3-7.7) k/uL Potassium 3.4 L (3.5-5.1) mmol/L Creatinine 0.47 L (0.52-1.04) mg/dL Glucose 120 H (74-99) mg/dL Microbiology - Last 24 Hours (Table) 07/06/20 18:30 Gram Stain - Preliminary Aspirate Body Fluid Culture - Preliminary Assessment and Plan (1) Cholelithiasis Current Visit: Yes Status: Acute Code(s): K80.20 - CALCULUS OF GALLBLADDER W/O CHOLECYSTITIS W/O OBSTRUCTION SNOMED Code(s): 864444521 (2) Breast cancer Current Visit: Yes Status: Acute Code(s): C50.919 - MALIGNANT NEOPLASM OF UNSP SITE OF UNSPECIFIED FEMALE BREAST SNOMED Code(s): 162884795 (3) History of colon cancer Current Visit: Yes Status: Acute Code(s): Z85.038 - PERSONAL HISTORY OF MALIGNANT NEOPLASM OF LARGE INTESTINE SNOMED Code(s): 988467378 (4) Diabetes Current Visit: Yes Status: Acute Code(s): E11.9 - TYPE 2 DIABETES MELLITUS WITHOUT COMPLICATIONS SNOMED Code(s): 07771679 (5) Hypertension Current Visit: Yes Status: Acute Code(s): I10 - ESSENTIAL (PRIMARY) HYPERTENSION SNOMED Code(s): 20772825 (6) Hydrops of gallbladder Current Visit: Yes Status: Acute Code(s): K82.1 - HYDROPS OF GALLBLADDER SNOMED Code(s): 06818895 (7) Acute cholecystitis due to biliary calculus Current Visit: Yes Status: Acute Code(s): K80.00 - CALCULUS OF GALLBLADDER W ACUTE CHOLECYST W/O OBSTRUCTION SNOMED Code(s): 67569768978021 (8) Confusion Current Visit: Yes Status: Acute Code(s): R41.0 - DISORIENTATION, UNSPECIFIED SNOMED Code(s): 479028375 Plan: The confusion last night may have been due to the [place]. That will be discontinued and will offer her tramadol. We will continue IV antibiotics at this point pending cultures. Her daughter is at bedside. Questions were encouraged and answered. If cultures are negative tomorrow, she can probably be discharged home without any further oral antibiotics.
[2020-07-08] MEDS: traMADol 50 MG TAB PO PRN ×2 (16:49→22:02)
[2020-07-08] MEDS: LEVOFLOXACIN 500MG-D5W PMX 500 MG in DEXTROSE/WATER 1 100ML.BAG IVPB SCH (16:49)
--- NOTE | 2020-07-08 17:01 | P.PN ---
Progress Note - Text Progress Note Date: 07/08/20 Chief Complaint: abdominal pain History of presenting complaint: This is a 85-year-old patient of Dr. Sargent. 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 Daughter is at the bedside. But for about 1 day patient been having right upper quadrant pain. But he was limited there. No nausea vomiting. No fever no chills. Ultrasound showing a gallstone. No CBD duct dilatation. General surgery was consulted for the same. No fever no chills. Patient underwent cholecystectomy. Found to have gallstones and acute cholecystitis. Hydrops of the gallbladder and cystic duct obstruction. Surgical drain was placed. Today-was somewhat confused last night. Could be pain medications. Feeling better this morning. Laying in bed. Has been up to the bathroom. Some abdominal pain. No nausea vomiting. Daughter the bedside. Review of systems: Was done for constitutional, cardiovascular, GI, pulmonary. relevant finding as above Active Medications Acetaminophen (Tylenol Tab) 650 mg PO DAILY PRN PRN Reason: arthritis pain Amlodipine Besylate (Norvasc) 5 mg PO DAILY [facility] Last Admin: 07/08/20 08:53 Dose: 5 mg Documented by: Atorvastatin Calcium (Lipitor) 10 mg PO HS [facility] Last Admin: 07/07/20 19:59 Dose: 10 mg Documented by: Calcium Carbonate (Oscal 500+D) 1 each PO DAILY [facility] Last Admin: 07/08/20 08:53 Dose: 1 each Documented by: Cholecalciferol (Vitamin D3 (25 Mcg = 1000 Iu)) 3,000 unit PO DAILY [facility] Last Admin: 07/08/20 08:53 Dose: 3,000 unit Documented by: Heparin Sodium (Porcine) (Heparin) 5,000 unit SQ Q12HR [facility] Last Admin: 07/08/20 08:53 Dose: 5,000 unit Documented by: Hydromorphone HCl (Dilaudid) 0.5 mg IVP Q3HR PRN PRN Reason: Moderate to Severe Pain Last Admin: 07/07/20 06:16 Dose: 0.5 mg Documented by: Levofloxacin 500 mg/ IV (Solution) 100 mls @ 100 mls/hr IVPB Q24H [facility] Last Admin: 07/07/20 16:47 Dose: 100 mls/hr Documented by: Isosorbide Mononitrate (Imdur) 30 mg PO DAILY [facility] Last Admin: 07/08/20 08:53 Dose: 30 mg Documented by: Letrozole (Femara) 2.5 mg PO DAILY [facility] Last Admin: 07/07/20 09:44 Dose: 2.5 mg Documented by: Meloxicam (Mobic) 7.5 mg PO BID PRN PRN Reason: arthritis pain Metoclopramide HCl (Reglan) 10 mg IVP Q6H PRN PRN Reason: Nausea And Vomiting Morphine Sulfate (Morphine Sulfate (Inj)) 1 mg IVP Q4H PRN PRN Reason: Pain/Discomfort Last Admin: 07/06/20 12:30 Dose: 1 mg Documented by: Naloxone HCl (Narcan) 0.2 mg IV Q2M PRN PRN Reason: Opioid Reversal Pantoprazole Sodium (Protonix) 40 mg IV DAILY [facility] Last Admin: 07/08/20 08:53 Dose: 40 mg Documented by: Tramadol HCl (Ultram) 50 mg PO Q4HR PRN PRN Reason: Pain 1-5 Tramadol HCl (Ultram) 100 mg PO Q6HR PRN PRN Reason: Pain 6-10 Physical examination: VITAL SIGNS: 98.6, 79, 18, 149/69, 93% room air GENERAL: laying in bed, comfortable EYES: Pupils equal. Conjunctiva normal. HEENT: External appearance of nose and ears normal, oral cavity grossly normal. NECK: JVD not raised; masses not palpable. HEART: First and second heart sounds are normal; no edema. LUNGS: Respiratory rate normal; clear to auscultation. ABDOMEN: Soft, right upper quadrant tenderness no guarding rigidity, liver spleen not palpable, no masses palpable. Surgical drain.incision healing well PSYCH: Alert and oriented x3; mood and affect normal. MUSCULAR skeletal: Evidence of OA INVESTIGATIONS, reviewed in the clinical context: white count 10.8 hemoglobin 10.8 Previous testing White count 8.4 hemoglobin 13.4 platelets 213 potassium 4.8 creatinine 0.5 for amylase less than 30 lipase 101 EKG tracing personally reviewed by me-no sinus rhythm Liver ultrasound-numerous gallstones no dilated ducts. Assessment: -Acute symptomatic choledocholithiasis. With acute cholecystitis, and hydrops gallbladder. Status post cholecystectomy with the surgical drain.. -Obesity BMI 38.8 -Diabetes mellitus type 2 on oral hypoglycemic -GERD -Hyperlipidemia -Essential hypertension -Primary osteoarthritis -Urinary stress incontinence -Acute delirium likely from pain medications resolved Plan: discussed with daughter the bedside. Dilaudid will be discontinued. And morphine. Initial patient does well today ambulate. Up in a chair. If stable discharge tomorrow.
[2020-07-08] MEDS: LETROZOLE 2.5 MG TAB PO SCH (18:17)
[2020-07-08] MEDS: ATORVASTATIN 10 MG TAB PO SCH (19:58)
[2020-07-09 02:29] VITALS: PULSE 80
[2020-07-09 07:38] VITALS: BP 145/98; RESP 14; TEMP 98.1
[2020-07-09] MEDS: amLODIPine 5 MG TAB PO SCH (08:18)
[2020-07-09] MEDS: LETROZOLE 2.5 MG TAB PO SCH (08:18)
[2020-07-09] MEDS: CALCIUM CARB-VIT D 500MG-200UN 1 EACH TAB PO SCH (08:18)
[2020-07-09] MEDS: PANTOPRAZOLE 40 MG/10 ML VIAL IV SCH (08:18)
[2020-07-09] MEDS: HEPARIN SODIUM,PORCINE 5,000 UNIT/ML 1 ML VIAL SQ SCH (08:18)
[2020-07-09] MEDS: ISOSORBIDE MONONITRATE ER 30 MG TAB.ER.24H PO SCH (08:18)
[2020-07-09] MEDS: CHOLECALCIFEROL 1,000 UNIT TAB PO SCH (08:18)
[2020-07-09] MEDS ORDERED: AMOXIC-POT CLAV 875-125MG 1 EACH TAB PO SCH (12:00)
--- NOTE | 2020-07-09 12:45 | P.PN ---
Subjective Progress Note Date: 07/09/20 Principal diagnosis: Status post open cholecystectomy for acute cholecystitis The patient is doing well. Tolerating a diet. Passing flatus. No nausea or vomiting. Mild pain. Objective - Vital Signs Vital signs: Vital Signs Temp 98.1 F 07/09/20 07:00 Pulse 80 07/09/20 07:00 Resp 14 07/09/20 07:00 BP 145/98 07/09/20 07:00 Pulse Ox 96 07/09/20 07:00 Intake & Output 07/08/20 07/09/20 07/09/20 18:59 06:59 18:59 Intake Total 540 580 Balance 540 580 Intake: Oral 540 580 Other: Voiding Method Toilet Toilet # Voids 3 2 2 - Constitutional General appearance: Present: cooperative, no acute distress - Labs CBC & Chem 7: 07/08/20 06:31 07/07/20 10:06 Labs: Microbiology - Last 24 Hours (Table) 07/06/20 18:30 Anaerobic Culture - Preliminary Other - Other 07/06/20 18:30 Gram Stain - Preliminary Aspirate Body Fluid Culture - Preliminary Assessment and Plan (1) Cholelithiasis Current Visit: Yes Status: Acute Code(s): K80.20 - CALCULUS OF GALLBLADDER W/O CHOLECYSTITIS W/O OBSTRUCTION SNOMED Code(s): 655023755 (2) Breast cancer Current Visit: Yes Status: Acute Code(s): C50.919 - MALIGNANT NEOPLASM OF UNSP SITE OF UNSPECIFIED FEMALE BREAST SNOMED Code(s): 451616535 (3) History of colon cancer Current Visit: Yes Status: Acute Code(s): Z85.038 - PERSONAL HISTORY OF MALIGNANT NEOPLASM OF LARGE INTESTINE SNOMED Code(s): 029222417 (4) Diabetes Current Visit: Yes Status: Acute Code(s): E11.9 - TYPE 2 DIABETES MELLITUS WITHOUT COMPLICATIONS SNOMED Code(s): 40217134 (5) Hypertension Current Visit: Yes Status: Acute Code(s): I10 - ESSENTIAL (PRIMARY) HYPERTENSION SNOMED Code(s): 13587596 (6) Hydrops of gallbladder Current Visit: Yes Status: Acute Code(s): K82.1 - HYDROPS OF GALLBLADDER SNOMED Code(s): 49843559 (7) Acute cholecystitis due to biliary calculus Current Visit: Yes Status: Acute Code(s): K80.00 - CALCULUS OF GALLBLADDER W ACUTE CHOLECYST W/O OBSTRUCTION SNOMED Code(s): 36786824435103 (8) Confusion Current Visit: Yes Status: Acute Code(s): R41.0 - DISORIENTATION, UNSPECIFIED SNOMED Code(s): 324253963 Plan: The patient is surgically stable for discharge. The bile cultures have been negative so I don't feel she needs to be in additional antibiotics. She was given tramadol for pain and can also use Tylenol or Motrin. Discharge instructions were discussed with third daughter and patient. Questions were encouraged and answered. I'll see her in the office in about 10 days for staple removal. Call if questions or concerns
[2020-07-09] MEDS: traMADol 50 MG TAB PO PRN (13:40)
--- NOTE | 2020-07-09 22:38 | P.DS ---
Providers Date of admission: 07/07/20 09:44 Expected date of discharge: 07/09/20 Attending physician: Antonio Azul Consults: 07/05/20 18:39 Consult Physician Urgent Consulting Provider: Lissett Weaver Consult Reason/Comments: Abdominal pain Do you want consulting provider notified?: Yes Primary care physician: Herberth Beaumont Hospital Course: Chief Complaint: abdominal pain History of presenting complaint: This is a 85-year-old patient of Dr. Sargent. 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 Daughter is at the bedside. But for about 1 day patient been having right upper quadrant pain. But he was limited there. No nausea vomiting. No fever no chills. Ultrasound showing a gallstone. No CBD duct dilatation. General surgery was consulted for the same. No fever no chills. Patient underwent cholecystectomy. Found to have gallstones and acute cholecystitis. Hydrops of the gallbladder and cystic duct obstruction. Surgical drain was placed. Today-eating some. Has been up to the bathroom. Feeling better. Pain better control. Passed flatus. Cleared by Dr. Weaver for discharge. Consultation: Dr. Weaver from general surgery Physical examination: VITAL SIGNS: 98.1, 80, 14, 145/98, 96% room air GENERAL: laying in bed, comfortable EYES: Pupils equal. Conjunctiva normal. HEENT: External appearance of nose and ears normal, oral cavity grossly normal. NECK: JVD not raised; masses not palpable. HEART: First and second heart sounds are normal; no edema. LUNGS: Respiratory rate normal; clear to auscultation. ABDOMEN: Soft, mild right upper quadrant tenderness, no guarding rigidity, liver spleen not palpable, no masses palpable. Surgical drain.incision healing well PSYCH: Alert and oriented x3; mood and affect normal. MUSCULAR skeletal: Evidence of OA INVESTIGATIONS, reviewed in the clinical context: white count 10.8 hemoglobin 10.8 Previous testing White count 8.4 hemoglobin 13.4 platelets 213 potassium 4.8 creatinine 0.5 for amylase less than 30 lipase 101 EKG tracing personally reviewed by me-no sinus rhythm Liver ultrasound-numerous gallstones no dilated ducts. Assessment: -Acute symptomatic choledocholithiasis. With acute cholecystitis, and hydrops gallbladder. Status post cholecystectomy. -Obesity BMI 38.8 -Diabetes mellitus type 2 on oral hypoglycemic -GERD -Hyperlipidemia -Essential hypertension -Primary osteoarthritis -Urinary stress incontinence -Acute delirium likely from pain medications resolved Disposition: Home with daughtr Patient Condition at Discharge: Stable Plan - Discharge Summary Discharge Rx Participant: No New Discharge Prescriptions: New traMADol HCL 1 - 2 mg PO Q6HR PRN #15 tablet PRN Reason: Pain Continue Simvastatin [Zocor] 10 mg PO HS Alendronate Sodium [Fosamax] 70 mg PO MO Isosorbide Mononitrate ER [Imdur] 30 mg PO DAILY amLODIPine [Norvasc] 5 mg PO DAILY Furosemide [Lasix] 20 mg PO DAILY Cholecalciferol [Vitamin D3 (25 Mcg = 1000 Iu)] 3,000 unit PO DAILY Calcium Carbonate/Vitamin D3 [Calcium 600-Vit D3 200 Tablet] 1 tab PO DAILY Meloxicam [Mobic] 7.5 mg PO BID PRN PRN Reason: arthritis pain Letrozole [Femara] 2.5 mg PO DAILY Acetaminophen [Tylenol Arthritis] 650 mg PO DAILY PRN PRN Reason: arthritis pain Discharge Medication List Alendronate Sodium [Fosamax] 70 mg PO MO 11/09/15 [History] Furosemide [Lasix] 20 mg PO DAILY 11/09/15 [History] Isosorbide Mononitrate ER [Imdur] 30 mg PO DAILY 11/09/15 [History] Simvastatin [Zocor] 10 mg PO HS 11/09/15 [History] amLODIPine [Norvasc] 5 mg PO DAILY 11/09/15 [History] Acetaminophen [Tylenol Arthritis] 650 mg PO DAILY PRN 07/05/20 [History] Calcium Carbonate/Vitamin D3 [Calcium 600-Vit D3 200 Tablet] 1 tab PO DAILY 07/05/20 [History] Cholecalciferol [Vitamin D3 (25 Mcg = 1000 Iu)] 3,000 unit PO DAILY 07/05/20 [History] Letrozole [Femara] 2.5 mg PO DAILY 07/05/20 [History] Meloxicam [Mobic] 7.5 mg PO BID PRN 07/05/20 [History] traMADol HCL 1 - 2 mg PO Q6HR PRN #15 tablet 07/09/20 [Rx] Follow up Appointment(s)/Referral(s): Lissett Weaver DO [Doctor of Osteopathic Medicine] - 10 Days (Office closed at time of discharge please call SundayJuly 12 to set up a follow up appointment) Herberth Sargent DO [Primary Care Provider] - 07/14/20 1:40 pm Patient Instructions/Handouts: Low Fat Diet (DC), Open Cholecystectomy (DC) Activity/Diet/Wound Care/Special Instructions: soft bland diet bmp/cbc - 3 days May shower with dressings in place. Pat dry no scrubbing Avoid greasy foods Mitchell to be removed in the office with Dr Weaver in 7-10days As discussed by Dr Weaver with patient daughter - patient can have milk of magnesia to aid bowel movements if needed Discharge Disposition: HOME SELF-CARE
[2020-07-12] MEDS ORDERED: NON FORMULARY DRUG (Alendronate Sodium [Fosamax] 70 MG) PO SCH (05:28)
== END 2020-07-09 13:50 | disposition home or self-care (01) | DRG 415 ==
LOC: EC 16:35 → 1SOBS 18:39 → 4SSUR 07-06 19:40 → OBSVTOIN 07-07 09:44 → 4SSUR 07-07 22:11
PROVIDERS: ADMIT Hospitalist; ATTEND Hospitalist
PROC: 0FT40ZZ Resection of Gallbladder, Open Approach (ICD-10-PCS; principal; 2020-07-06 16:38)
PROC: 0FJ44ZZ Inspection of Gallbladder, Percutaneous Endoscopic Approach (ICD-10-PCS; principal; 2020-07-06 16:38)
DX: K80.63 Calculus of gallbladder and bile duct with acute cholecystitis with obstruction (principal); K82.1 Hydrops of gallbladder; F05 Delirium due to known physiological condition; E78.5 Hyperlipidemia, unspecified; F17.200 Nicotine dependence, unspecified, uncomplicated; I10 Essential (primary) hypertension; K21.9 Gastro-esophageal reflux disease without esophagitis; M19.90 Unspecified osteoarthritis, unspecified site; E11.9 Type 2 diabetes mellitus without complications; E66.9 Obesity, unspecified; T40.4X5A Adverse effect of other synthetic narcotics, initial encounter; M19.91 Primary osteoarthritis, unspecified site; N39.3 Stress incontinence (female) (male); I49.3 Ventricular premature depolarization; Z79.1 Long term (current) use of non-steroidal anti-inflammatories (NSAID); Z79.811 Long term (current) use of aromatase inhibitors; Z79.83 Long term (current) use of bisphosphonates; Z79.899 Other long term (current) drug therapy; Z88.1 Allergy status to other antibiotic agents; Z85.038 Personal history of other malignant neoplasm of large intestine; Z90.49 Acquired absence of other specified parts of digestive tract; Z98.890 Other specified postprocedural states; Z90.710 Acquired absence of both cervix and uterus; Z85.42 Personal history of malignant neoplasm of other parts of uterus; Z68.38 Body mass index [BMI] 38.0-38.9, adult; Z53.31 Laparoscopic surgical procedure converted to open procedure; Z85.3 Personal history of malignant neoplasm of breast
CPT/HCPCS: 36415; 76705; 80048; 80053; 81003; 82150; 83036; 83690; 84484; 85025; 85027; 87070; 87075; 87077; 87186; 87205; 88304; 93005; 96361; 96374; 99285

== ENCOUNTER 2022-06-06 11:51 | Observation (INO) | payer MEDICARE, BC ==
[2022-06-06] MEDS ORDERED: NITROGLYCERIN OINT 1 INCH/GM PACKET TOPICAL STA (12:21)
[2022-06-06] MEDS ORDERED: ASPIRIN 81 MG PO STA (12:21)
--- NOTE | 2022-06-06 12:24 | ED ---
General Adult HPI - General Chief complaint: Chest Pain Stated complaint: Chest pain Time Seen by Provider: 06/06/22 12:05 Source: patient, RN notes reviewed, old records reviewed Mode of arrival: wheelchair Limitations: physical limitation - History of Present Illness Initial comments: This is an 87-year-old female whom I saw in triage and the patient comes in with a complaint of chest pain. Patient states the chest pain radiating up into the jaw and she was also very short of breath. The pain lasted a few hours. Patient states she had a little bit of pain last night but that subsided. Patient denies any diaphoretic episodes. Patient denies any nausea. Patient denies any recent fever chills or cough per patient denies chest pain currently. Patient states she has high blood pressure high cholesterol and is diet controlled diabetic. Patient denies any smoking history. Patient denies any abdominal pain recently. Patient denies any vomiting or diarrhea. Patient denies any lightheadedness dizziness or near syncopal episode. - Related Data Home Medications Medication Instructions Recorded Confirmed Alendronate Sodium [Fosamax] 70 mg PO MO 11/09/15 07/05/20 Furosemide [Lasix] 20 mg PO DAILY 11/09/15 07/05/20 Isosorbide Mononitrate ER [Imdur] 30 mg PO DAILY 11/09/15 07/05/20 Simvastatin [Zocor] 10 mg PO HS 11/09/15 07/05/20 amLODIPine [Norvasc] 5 mg PO DAILY 11/09/15 07/05/20 Acetaminophen [Tylenol Arthritis] 650 mg PO DAILY PRN 07/05/20 07/05/20 Calcium Carbonate/Vitamin D3 1 tab PO DAILY 07/05/20 07/05/20 [Calcium 600-Vit D3 5 Mcg (200 Iu)] Cholecalciferol [Vitamin D3 (25 3,000 unit PO DAILY 07/05/20 07/05/20 Mcg = 1000 Iu)] Letrozole [Femara] 2.5 mg PO DAILY 07/05/20 07/05/20 Meloxicam [Mobic] 7.5 mg PO BID PRN 07/05/20 07/05/20 Previous Rx's Medication Instructions Recorded traMADol HCL 1 - 2 mg PO Q6HR PRN #15 tablet 07/09/20 Allergies Allergy/AdvReac Type Severity Reaction Status Date / Time cephalexin monohydrate Allergy Rash/Hives Verified 06/06/22 13:48 [From Keflex] Review of Systems ROS Statement: Those systems with pertinent positive or pertinent negative responses have been documented in the HPI. ROS Other: All systems not noted in ROS Statement are negative. Past Medical History Past Medical History: Cancer, Diabetes Mellitus, GERD/Reflux, Hyperlipidemia, Hypertension, Osteoarthritis (OA) Additional Past Medical History / Comment(s): UTERINE CANCER, COLON CANCER, STRESS INCONTINENCE, DIET CONTROLLED DIABETIC History of Any Multi-Drug Resistant Organisms: None Reported Past Surgical History: Bowel Resection, Breast Surgery, Heart Catheterization, Hernia Repair, Hysterectomy Past Anesthesia/Blood Transfusion Reactions: No Reported Reaction Past Psychological History: No Psychological Hx Reported Smoking Status: Never smoker Past Alcohol Use History: Rare Past Drug Use History: None Reported - Past Family History Mother Family Medical History: No Reported History General Exam - General Exam Comments Initial Comments: GENERAL: Patient is well-developed and well-nourished. Patient is nontoxic and well- hydrated and is in no acute distress. ENT: Neck is soft and supple. No significant lymphadenopathy is noted. Oropharynx is clear. Moist mucous membranes. Neck has full range of motion without eliciting any pain. EYES: The sclera were anicteric and conjunctiva were pink and moist. Extraocular movements were intact and pupils were equal round and reactive to light. Eyelids were unremarkable. PULMONARY: Unlabored respirations. Good breath sounds bilaterally. No audible rales rhonchi or wheezing was noted. CARDIOVASCULAR: There is a regular rate and rhythm without any murmurs gallops or rubs. ABDOMEN: Soft and nontender with normal bowel sounds. SKIN: Skin is clear with no lesions or rashes and otherwise unremarkable. NEUROLOGIC: Patient is alert and oriented x3. Cranial nerves II through XII are grossly intact. Motor and sensory are also intact. Normal speech, volume and content. Symmetrical smile. MUSCULOSKELETAL: Normal extremities with adequate strength and full range of motion. LYMPHATICS: No significant lymphadenopathy is noted PSYCHIATRIC: Normal psychiatric evaluation. Limitations: physical limitation Course Vital Signs 06/06/22 11:53 Temperature 97.9 F Pulse Rate 79 Respiratory 18 Rate Blood Pressure 121/70 O2 Sat by Pulse 94 L Oximetry Medical Decision Making - Medical Decision Making EKG shows sinus rhythm at 74 bpm OR interval is on a 57 QRSs 80 QT interval 372 QTC is 399. Patient's EKG shows no ST segment elevation or depression. Patient received aspirin and Nitropaste to the emergency department. Patient remained chest pain-free throughout the ED stay. Patient's chest x-ray shows some atelectasis. I spoke with some physician agreed to admit the patient admitted the patient wrote admitting orders. - Lab Data Result diagrams: 06/06/22 12:28 06/06/22 12:28 Lab Results 06/06/22 06/06/22 06/06/22 Range/Units 12:28 12:28 12:28 WBC 5.7 (3.8-10.6) k/uL RBC 3.98 (3.80-5.40) m/uL Hgb 13.4 (11.4-16.0) gm/dL Hct 40.2 (34.0-46.0) % MCV 100.9 H (80.0-100.0) fL MCH 33.7 (25.0-35.0) pg MCHC 33.4 (31.0-37.0) g/dL RDW 12.9 (11.5-15.5) % Plt Count 229 (150-450) k/uL MPV 7.2 Neutrophils % 77 % Lymphocytes % 9 % Monocytes % 11 % Eosinophils % 1 % Basophils % 0 % Neutrophils # 4.4 (1.3-7.7) k/uL Lymphocytes # 0.5 L (1.0-4.8) k/uL Monocytes # 0.6 (0-1.0) k/uL Eosinophils # 0.0 (0-0.7) k/uL Basophils # 0.0 (0-0.2) k/uL PT 10.8 (9.0-12.0) sec INR 1.0 (<1.2) APTT 24.6 (22.0-30.0) sec Sodium 137 (137-145) mmol/L Potassium 3.4 L (3.5-5.1) mmol/L Chloride 104 (98-107) mmol/L Carbon Dioxide 30 (22-30) mmol/L Anion Gap 3 mmol/L BUN 10 (7-17) mg/dL Creatinine 0.66 (0.52-1.04) mg/dL Est GFR (CKD-EPI)AfAm >90 (>60 ml/min/1.73 sqM) Est GFR (CKD-EPI)NonAf 79 (>60 ml/min/1.73 sqM) Glucose 97 (74-99) mg/dL Calcium 8.7 (8.4-10.2) mg/dL Magnesium 1.6 (1.6-2.3) mg/dL Total Bilirubin 0.4 (0.2-1.3) mg/dL AST 27 (14-36) U/L ALT 12 (4-34) U/L Alkaline Phosphatase 71 (38-126) U/L Troponin I (0.000-0.034) ng/mL Total Protein 6.2 L (6.3-8.2) g/dL Albumin 3.3 L (3.5-5.0) g/dL 06/06/22 Range/Units 12:28 WBC (3.8-10.6) k/uL RBC (3.80-5.40) m/uL Hgb (11.4-16.0) gm/dL Hct (34.0-46.0) % MCV (80.0-100.0) fL MCH (25.0-35.0) pg MCHC (31.0-37.0) g/dL RDW (11.5-15.5) % Plt Count (150-450) k/uL MPV Neutrophils % % Lymphocytes % % Monocytes % % Eosinophils % % Basophils % % Neutrophils # (1.3-7.7) k/uL Lymphocytes # (1.0-4.8) k/uL Monocytes # (0-1.0) k/uL Eosinophils # (0-0.7) k/uL Basophils # (0-0.2) k/uL PT (9.0-12.0) sec INR (<1.2) APTT (22.0-30.0) sec Sodium (137-145) mmol/L Potassium (3.5-5.1) mmol/L Chloride (98-107) mmol/L Carbon Dioxide (22-30) mmol/L Anion Gap mmol/L BUN (7-17) mg/dL Creatinine (0.52-1.04) mg/dL Est GFR (CKD-EPI)AfAm (>60 ml/min/1.73 sqM) Est GFR (CKD-EPI)NonAf (>60 ml/min/1.73 sqM) Glucose (74-99) mg/dL Calcium (8.4-10.2) mg/dL Magnesium (1.6-2.3) mg/dL Total Bilirubin (0.2-1.3) mg/dL AST (14-36) U/L ALT (4-34) U/L Alkaline Phosphatase (38-126) U/L Troponin I <0.012 (0.000-0.034) ng/mL Total Protein (6.3-8.2) g/dL Albumin (3.5-5.0) g/dL Disposition Clinical Impression: Chest pain Disposition: ADMITTED IP TO THIS HOSP Referrals: Herberth Sargent DO [Primary Care Provider] - 1-2 days Time of Disposition: 13:53
[2022-06-06 12:49] LABS: Basophils % (A) 0 %; Eosinophils % (A) 1 %; HCT 40.2 % (34.0-46.0); HGB 13.4 gm/dL (11.4-16.0); Lymphocytes # (A) 0.5 k/uL (1.0-4.8); Lymphocytes % (A) 9 %; MCH 33.7 pg (25.0-35.0); MCHC 33.4 g/dL (31.0-37.0); MCV 100.9 fL (80.0-100.0); Mean Platelet Volume 7.2; Monocytes # (A) 0.6 k/uL (0-1.0); Monocytes % (A) 11 %; Neutrophils # (A) 4.4 k/uL (1.3-7.7); Neutrophils % (A) 77 %; Platelet Count 229 k/uL (150-450); RBC 3.98 m/uL (3.80-5.40); RDW 12.9 % (11.5-15.5); WBC 5.7 k/uL (3.8-10.6)
[2022-06-06 13:06] LABS: Partial Thromboplastin Time 24.6 sec (22.0-30.0); Prothrombin Time 10.8 sec (9.0-12.0)
[2022-06-06 13:15] LABS: Chloride 104 mmol/L (98-107)
[2022-06-06 13:17] LABS: ALT 12 U/L (4-34); AST 27 U/L (14-36); African American GFR (CKD) >90 (>60 ml/min/1.73 sqM); Albumin 3.3 g/dL (3.5-5.0); Anion Gap 3 mmol/L; Blood Urea Nitrogen 10 mg/dL (7-17); Carbon Dioxide 30 mmol/L (22-30); Glucose 97 mg/dL (74-99); Non-African American GFR(CKD) 79 (>60 ml/min/1.73 sqM); Potassium 3.4 mmol/L (3.5-5.1); Sodium 137 mmol/L (137-145); Total Bilirubin 0.4 mg/dL (0.2-1.3); Total Protein 6.2 g/dL (6.3-8.2)
[2022-06-06 13:19] LABS: Alkaline Phosphatase 71 U/L (38-126); Calcium 8.7 mg/dL (8.4-10.2); Magnesium 1.6 mg/dL (1.6-2.3)
--- NOTE | 2022-06-06 13:19 | XR ---
EXAMINATION TYPE: XR chest 2V DATE OF EXAM: 06/06/2022 COMPARISON: Chest x-ray 03/09/2013 HISTORY: Chest pain TECHNIQUE: Frontal and lateral views of the chest are obtained. FINDINGS: Patient is rotated. There may be underlying scoliosis. Question some blunting of the left c ostophrenic angle. Retrocardiac patchy density is present. Left hemidiaphragm is mildly elevated. No evident pneumothorax. Marked arthropathy noted in the shoulders. Degenerative disc changes present in the visualized spine. Cardiac mediastinal silhouette is stable accounting for differences in techniq ue. IMPRESSION: Correlate for left lower lobe atelectasis versus pneumonia, difficult to exclude effusio n
[2022-06-06] MEDS ORDERED: NITROGLYCERIN SL TABS 0.4 MG TAB SUBLINGUAL PRN (13:54)
[2022-06-06] MEDS ORDERED: POTASSIUM CHLORIDE ER 20 MEQ TAB.ER PO STA (17:46)
--- NOTE | 2022-06-06 17:53 | P.HPIM ---
History of Present Illness H&P Date: 06/06/22 Chief Complaint: Chest pain Patient is an 87 year old female with PMH of colon CA, L breast CA, diet controlled DM, GERD, Hypertension, Dyslipidemia presents the ED for chest pain. Patient is a poor historian majority of history is provided by her daughter. Patient reports chest pain that started this morning as she was relaxing. Pain was described as pressure like and radiated to the right neck. She denies any diaphoresis, nausea or vomiting. She denies any shortness of breath. She she has no current chest pain. No history of CAD. She denies any headache, lower extremity edema, fever or chills, cough, palpitations, changes in urination or bowel habits. No changes in appetite or weight. She denies any dizziness, numbness/weakness/tingling extremities. She follows Dr. Perez as her log washer for management of hypertension. In the ED, her vital signs are stable. CBC showed MCV of 100.9. Coagulation panel negative. CMP showed potassium of 3.4. Troponin was less than 0.0122 with EKG showing sinus rhythm. Patient is admitted under observation status or chest pain, rule out acute coronary syndrome and cardiology evaluation. Review of systems has been performed and is negative except above. General: [non toxic], [no distress], [appears at stated age] Derm: [warm], [dry] Head: [atraumatic], [normocephalic], [symmetric] Eyes: [EOMI], [no lid lag], [anicteric sclera] Mouth: [no lip lesion], [mucus membranes moist] Cardiovascular: [S1S2 reg], [no murmur], [positive posterior tibial pulse bilateral], Lungs: [CTA bilateral], [no rhonchi, no rales] , [no accessory muscle use] Abdominal: [soft], [ nontender to palpation], [no guarding], [no appreciable organomegaly] Ext: [no gross muscle atrophy], [no edema], [no contractures] Neuro: [ CN II-XI grossly intact], [no focal neuro deficits] Psych: [Alert], [oriented], [appropriate affect] #Chest pain #Hypokalemia #Macrocytosis #Morbid obesity Chronic conditions: History of colon cancer, history of left breast cancer, diabetes mellitus, GERD, hypertension, dyslipidemia Patient is admitted for chest pain. Troponins will be trended and ACS will be ruled out. Echocardiogram is ordered. Telemetry monitoring ordered. Cardiology has been consulted for further management of this patient. Potassium replaced. Repeat tomorrow morning. Patient will need outpatient workup for macrocytosis. Patient would benefit from a structured weight loss program. Patient follows Dr. Rahman from Oncology with regard to her cancer diagnosis. Restart Letrozole. Restart Lipitor for dyslipidemia. Restart Amlodipine and Imdur for hypertension. Monitor vitals, adjust medications if necessary. Patient name Center daughter decision maker if she can't make decisions for herself. Patient would like to be full code. DVT prophylaxis: [Heparin] Discussed with: [Patient, daughter, ED physician] Anticipated discharge: [1-2 days] Anticipated discharge place: [Home] A total of [35] minutes was spent on the care of this complex patient more than 50% of the time was spent in counseling and care coordination. Past Medical History Past Medical History: Cancer, Diabetes Mellitus, GERD/Reflux, Hyperlipidemia, Hypertension, Osteoarthritis (OA) Additional Past Medical History / Comment(s): UTERINE CANCER, COLON CANCER, STRESS INCONTINENCE, DIET CONTROLLED DIABETIC History of Any Multi-Drug Resistant Organisms: None Reported Past Surgical History: Bowel Resection, Breast Surgery, Heart Catheterization, Hernia Repair, Hysterectomy Past Anesthesia/Blood Transfusion Reactions: No Reported Reaction Past Psychological History: No Psychological Hx Reported Smoking Status: Never smoker Past Alcohol Use History: Rare Past Drug Use History: None Reported - Past Family History Mother Family Medical History: No Reported History Medications and Allergies Home Medications Medication Instructions Recorded Confirmed Type Furosemide [Lasix] 20 mg PO DAILY 11/09/15 06/06/22 History Isosorbide Mononitrate ER [Imdur] 30 mg PO DAILY 11/09/15 06/06/22 History Simvastatin [Zocor] 10 mg PO HS 11/09/15 06/06/22 History amLODIPine [Norvasc] 5 mg PO DAILY 11/09/15 06/06/22 History Calcium Carbonate/Vitamin D3 1 tab PO DAILY 07/05/20 06/06/22 History [Calcium 600-Vit D3 5 Mcg (200 Iu)] Letrozole [Femara] 2.5 mg PO DAILY 07/05/20 06/06/22 History Meloxicam [Mobic] 7.5 mg PO BID 07/05/20 06/06/22 History Cholecalciferol (Vitamin D3) 75 mcg PO DAILY 06/06/22 06/06/22 History [Vitamin D3 (3000 Iu)] Cyanocobalamin (Vitamin B-12) 1,000 mcg PO DAILY 06/06/22 06/06/22 History [Vitamin B-12] Denosumab [Prolia] 60 mg SQ Q180D 06/06/22 06/06/22 History traMADol HCL 50 mg PO Q6HR PRN 06/06/22 06/06/22 History Allergies Allergy/AdvReac Type Severity Reaction Status Date / Time cephalexin monohydrate Allergy Rash/Hives Verified 06/06/22 13:48 [From Keflex] Physical Exam Vitals: Vital Signs Temp Pulse Resp BP Pulse Ox 06/06/22 14:21 72 16 132/70 98 06/06/22 11:53 97.9 F 79 18 121/70 94 L Intake and Output 06/06/22 06/06/22 06/06/22 06:59 14:59 22:59 Other: Weight 89.358 kg Results CBC & Chem 7: 06/06/22 12:28 06/06/22 12:28 Labs: Abnormal Lab Results - Last 24 Hours (Table) 06/06/22 06/06/22 Range/Units 12:28 12:28 MCV 100.9 H (80.0-100.0) fL Lymphocytes # 0.5 L (1.0-4.8) k/uL Potassium 3.4 L (3.5-5.1) mmol/L Total Protein 6.2 L (6.3-8.2) g/dL Albumin 3.3 L (3.5-5.0) g/dL
[2022-06-06] MEDS: NITROGLYCERIN OINT 1 INCH/GM PACKET TOPICAL SCH ×2 (20:16→23:41)
[2022-06-06] MEDS: HEPARIN SODIUM,PORCINE/PF 5,000 UNIT/0.5 ML SYRINGE SQ SCH (20:16)
[2022-06-06] MEDS ORDERED: ATORVASTATIN 10 MG TAB PO SCH (21:00)
[2022-06-07] MEDS: NITROGLYCERIN OINT 1 INCH/GM PACKET TOPICAL SCH (05:00)
[2022-06-07 07:32] VITALS: BP 127/75; PULSE 75; TEMP 98.3
[2022-06-07] MEDS ORDERED: ASPIRIN 325 MG TAB PO SCH (09:00)
[2022-06-07] MEDS ORDERED: LETROZOLE 2.5 MG TAB PO SCH (09:00)
[2022-06-07] MEDS ORDERED: ASPIRIN 81 MG PO SCH (09:00)
[2022-06-07] MEDS ORDERED: FUROSEMIDE 20 MG TAB PO SCH (09:00)
[2022-06-07] MEDS ORDERED: amLODIPine 5 MG TAB PO SCH (09:00)
[2022-06-07] MEDS ORDERED: ISOSORBIDE MONONITRATE ER 30 MG TAB.ER.24H PO SCH (09:00)
--- NOTE | 2022-06-07 09:17 | CA ---
Transthoracic Echo Report Name: Valentina Glasgow Age: 87 Gender: F : 1935 Exam Date: 06/07/2022 07:41 Exam Location: [facility] Ht (in): 59 Wt (lb): 197 Ordering Physician: Toya Pringle MD Attending/Referring Phys: Furniture Upholsterer Maria Teresa Muñoz RDCS Procedure CPT: Indications: Chest Pain Cardiac Hx: Technical Quality: Good Contrast 1: Total Dose (mL): Contrast 2: Total Dose (mL): MEASUREMENTS (Male / Female) Normal Values 2D ECHO LV Diastolic Diameter PLAX 4.0 cm 4.2 - 5.9 / 3.9 - 5.3 cm LV Systolic Diameter PLAX 3.2 cm IVS Diastolic Thickness 1.0 cm 0.6 - 1.0 / 0.6 - 0.9 cm LVPW Diastolic Thickness 1.2 cm 0.6 - 1.0 / 0.6 - 0.9 cm LV Relative Wall Thickness 0.6 RV Internal Dim ED PLAX 3.6 cm LA Systolic Diameter LX 3.7 cm 3.0 - 4.0 / 2.7 - 3.8 cm LA Volume 35.3 cm??? 18 - 58 / 22 - 52 cm??? M-MODE Aortic Root Diameter MM 3.2 cm MV E Point Septal Separation 0.9 cm AV Cusp Separation MM 2.0 cm DOPPLER AV Peak Velocity 167.0 cm/s AV Peak Gradient 11.2 mmHg AI Peak Velocity 229.2 cm/s AI Peak Gradient 21.0 mmHg AI Pressure Half Time 517.6 ms MV Area PHT 2.1 cm??? Mitral E Point Velocity 95.2 cm/s Mitral A Point Velocity 106.2 cm/s Mitral E to A Ratio 0.9 MV Deceleration Time 354.3 ms MV E' Velocity 6.4 cm/s Mitral E to MV E' Ratio 14.8 TR Peak Velocity 243.5 cm/s TR Peak Gradient 23.7 mmHg Right Ventricular Systolic Press 27.9 mmHg FINDINGS Left Ventricle Left ventricular ejection fraction is estimated at 55-60 %. Left ventricular cavity size normal. Borderline left ventricular hypertrophy. Right Ventricle Mild right ventricular dilatation. Right ventricular systolic pressure within normal limits. Right Atrium Normal right atrial size. Left Atrium Normal left atrial size. No evidence for an atrial septal defect. Mitral Valve Mitral valve thickened. Mitral annular calcification. Trace to mild mitral regurgitation. Aortic Valve Trileaflet aortic valve. No aortic valve stenosis . Focal thickening of the aortic valve cusps. Mild aortic regurgitation. Tricuspid Valve Mild tricuspid regurgitation. Pulmonic Valve Structurally normal pulmonic valve. Pericardium Normal pericardium. No pericardial effusion. Aorta Normal size aortic root and proximal ascending aorta. CONCLUSIONS Normal LV systolic function Jose mildly enlarged right ventricle with normal RVSP Thickened aortic valve tips without significant stenosis, mild aortic regurgitation Previewed by: Dr. David Wilson MD (Electronically Signed) Final Date: 07 June 2022 09:16
[2022-06-07] MEDS: HEPARIN SODIUM,PORCINE/PF 5,000 UNIT/0.5 ML SYRINGE SQ SCH (09:36)
[2022-06-07 09:47] LABS: Chol/HDL Ratio 2.45 Ratio; LDL Cholesterol,Calculated 49.7 mg/dL (0.0-131.0); VLDL Calculation 14.78 mg/dL (5.00-40.00)
--- NOTE | 2022-06-07 10:13 | P.CRDCN ---
History of Present Illness History of present illness: HISTORY OF PRESENT ILLNESS: This is a 87-year-old female with a past medical history significant for hypertension, hyperlipidemia, and diabetes. Patient follows in the office with Dr. Clayton. We have been asked to see the patient in consultation for chest pain. Patient examined at the bedside. Patients daughter at the bedside and providing majority of HPI. She reports the patient developed chest pain shortly after waking up. She states she went to sit in her chair and continued to have chest pain. The pain was in the middle of her chest and also went into her jaw. The pain lasted for approximately 1 hour and then went away. The patient denies any chest pain or pressure at the time of my examination this morning * EKG reveals sinus mechanism with no signs of acute ischemia * Chest xray correlate for left lower lobe atelectasis versus pneumonia. Difficult to exclude effusion. * Laboratory data: WBC 5.7. Hemoglobin 13.4. Platelet count 229. Sodium 137. Potassium 3.4. BUN 10. Creatinine 0.66. Magnesium 1.6. Troponin negative 3. * Current home cardiac medications include Lasix 20 mg daily, Imdur 30 mg daily, amlodipine 5 mg daily, Zocor 10 mg at night * Echocardiogram obtained revealed ejection fraction 55-60% * Cardiac catheterization history: 1999 revealing minimal CAD REVIEW OF SYSTEMS: At the time of my exam: CONSTITUTIONAL: Denies fever or chills. HEENT: Denies blurred vision, vision changes, or eye pain. Denies hemoptysis CARDIOVASCULAR: Denies chest pain. Denies orthopnea. Denies PND. Denies palpit ations RESPIRATORY: Denies shortness of breath. GASTROINTESTINAL: Denies abdominal pain. Denies nausea or vomiting. HEMATOLOGIC: Denies bleeding disorders. GENITOURINARY: Denies any blood in urine. SKIN: Denies pruitis. Denies rash. PHYSICAL EXAM: VITAL SIGNS: Reviewed. GENERAL: Well-developed in no acute distress. HEENT: Head is normocephalic. Pupils are equal, round. Sclerae anicteric. Mucous membranes of the mouth are moist. Neck supple. No JVD or thyromegaly LUNGS: Respirations even and unlabored. Lungs essentially clear to auscultation bilaterally. HEART: Regular rate and rhythm. S1 and S2 heard. ABDOMEN: Soft. Nondistended. Nontender. EXTREMITIES: Normal range of motion. No clubbing or cyanosis. Peripheral pulses intact. No lower extremity edema NEUROLOGIC: Awake and alert. Oriented x 3. ASSESSMENT: Chest pain, troponin negative x 3 Minimal coronary artery disease per cardiac catheterization in 1999 Hypertension Hyperlipidemia Diabetes PLAN: An acute coronary event has been ruled out 2-D echo obtained and reviewed Resume home cardiac medications Patient currently receiving Lipitor 20 mg daily. Recommend increasing dose to 40 mg daily Patient may be discharged home today and follow up outpatient with Dr. Clayton Nurse practitioner note has been reviewed by physician. Signing provider agrees with the documented findings, assessment, and plan of care. Past Medical History Past Medical History: Cancer, Diabetes Mellitus, GERD/Reflux, Hyperlipidemia, Hypertension, Osteoarthritis (OA) Additional Past Medical History / Comment(s): UTERINE CANCER, COLON CANCER, STRESS INCONTINENCE, DIET CONTROLLED DIABETIC History of Any Multi-Drug Resistant Organisms: None Reported Past Surgical History: Bowel Resection, Breast Surgery, Heart Catheterization, Hernia Repair, Hysterectomy Past Anesthesia/Blood Transfusion Reactions: No Reported Reaction Past Psychological History: No Psychological Hx Reported Smoking Status: Never smoker Past Alcohol Use History: Rare Past Drug Use History: None Reported - Past Family History Mother Family Medical History: No Reported History Medications and Allergies Home Medications Medication Instructions Recorded Confirmed Type Furosemide [Lasix] 20 mg PO DAILY 11/09/15 06/06/22 History Isosorbide Mononitrate ER [Imdur] 30 mg PO DAILY 11/09/15 06/06/22 History Simvastatin [Zocor] 10 mg PO HS 11/09/15 06/06/22 History amLODIPine [Norvasc] 5 mg PO DAILY 11/09/15 06/06/22 History Calcium Carbonate/Vitamin D3 1 tab PO DAILY 07/05/20 06/06/22 History [Calcium 600-Vit D3 5 Mcg (200 Iu)] Letrozole [Femara] 2.5 mg PO DAILY 07/05/20 06/06/22 History Meloxicam [Mobic] 7.5 mg PO BID 07/05/20 06/06/22 History Cholecalciferol (Vitamin D3) 75 mcg PO DAILY 06/06/22 06/06/22 History [Vitamin D3 (3000 Iu)] Cyanocobalamin (Vitamin B-12) 1,000 mcg PO DAILY 06/06/22 06/06/22 History [Vitamin B-12] Denosumab [Prolia] 60 mg SQ Q180D 06/06/22 06/06/22 History traMADol HCL 50 mg PO Q6HR PRN 06/06/22 06/06/22 History Allergies Allergy/AdvReac Type Severity Reaction Status Date / Time cephalexin monohydrate Allergy Rash/Hives Verified 06/06/22 13:48 [From Keflex] Physical Exam Vitals: Vital Signs Temp Pulse Pulse Resp BP BP Pulse Ox 06/07/22 07:00 98.3 F 75 18 127/75 92 L 06/07/22 03:15 99.0 F 83 15 99/59 91 L 06/06/22 19:21 98.6 F 76 17 115/57 94 L 06/06/22 14:21 72 16 132/70 98 06/06/22 11:53 97.9 F 79 18 121/70 94 L Intake and Output 06/06/22 06/07/22 06/07/22 22:59 06:59 14:59 Other: # Voids 1 1 Weight 89.358 kg Results 06/06/22 12:28 06/06/22 12:28 Cardiac Enzymes 06/06/22 06/06/22 06/06/22 Range/Units 12:28 12:28 14:31 AST 27 (14-36) U/L Troponin I <0.012 <0.012 (0.000-0.034) ng/mL 06/06/22 Range/Units 17:17 AST (14-36) U/L Troponin I <0.012 (0.000-0.034) ng/mL Coagulation 06/06/22 Range/Units 12:28 PT 10.8 (9.0-12.0) sec APTT 24.6 (22.0-30.0) sec CBC 06/06/22 Range/Units 12:28 WBC 5.7 (3.8-10.6) k/uL RBC 3.98 (3.80-5.40) m/uL Hgb 13.4 (11.4-16.0) gm/dL Hct 40.2 (34.0-46.0) % Plt Count 229 (150-450) k/uL Comprehensive Metabolic Panel 06/06/22 Range/Units 12:28 Sodium 137 (137-145) mmol/L Potassium 3.4 L (3.5-5.1) mmol/L Chloride 104 (98-107) mmol/L Carbon Dioxide 30 (22-30) mmol/L BUN 10 (7-17) mg/dL Creatinine 0.66 (0.52-1.04) mg/dL Glucose 97 (74-99) mg/dL Calcium 8.7 (8.4-10.2) mg/dL AST 27 (14-36) U/L ALT 12 (4-34) U/L Alkaline Phosphatase 71 (38-126) U/L Total Protein 6.2 L (6.3-8.2) g/dL Albumin 3.3 L (3.5-5.0) g/dL Current Medications Generic Name Dose Route Start Last Admin Trade Name Freq PRN Reason Stop Dose Admin Amlodipine Besylate 5 mg 06/07/22 09:00 Amlodipine 5 Mg Tab PO DAILY [facility] Atorvastatin Calcium 10 mg 06/06/22 21:00 06/06/22 20:16 Atorvastatin 10 Mg Tab PO 10 mg HS FANTA Administration Furosemide 20 mg 06/07/22 09:00 Furosemide 20 Mg Tab PO DAILY [facility] Heparin Sodium (Porcine) 5,000 unit 06/06/22 21:00 06/06/22 20:16 Heparin Sodium,Porcine/Pf 5,000 Unit/0.5 Ml Syringe SQ 5,000 unit Q12HR FANTA Administration Isosorbide Mononitrate 30 mg 06/07/22 09:00 Isosorbide Mononitrate Er 30 Mg Tab.Er.24h PO DAILY [facility] Letrozole 2.5 mg 06/07/22 09:00 Letrozole 2.5 Mg Tab PO DAILY [facility] Nitroglycerin 0.4 mg 06/06/22 13:54 Nitroglycerin Sl Tabs 0.4 Mg Tab SUBLINGUAL Q5M PRN Chest Pain Intake and Output 06/06/22 06/07/22 06/07/22 22:59 06:59 14:59 Other: # Voids 1 1 Weight 89.358 kg 06/06/22 12:28 06/06/22 12:28
--- NOTE | 2022-06-07 11:03 | P.DS ---
Providers Date of admission: 06/06/22 14:02 Expected date of discharge: 06/07/22 Attending physician: Toya Pringle MD Consults: 06/06/22 13:54 Consult Physician Urgent Consulting Provider: [facility] Consult Reason/Comments: Chest pain Do you want consulting provider notified?: Yes Primary care physician: [facility] Course: Patient is an 87 year old female with PMH of colon CA, L breast CA, diet controlled DM, GERD, Hypertension, Dyslipidemia presents the ED for chest pain. Patient is a poor historian majority of history is provided by her daughter. Patient reports chest pain that started this morning as she was relaxing. Pain was described as pressure like and radiated to the right neck. She denies any diaphoresis, nausea or vomiting. She denies any shortness of breath. She she has no current chest pain. No history of CAD. She denies any headache, lower extremity edema, fever or chills, cough, palpitations, changes in urination or bowel habits. No changes in appetite or weight. She denies any dizziness, numbness/weakness/tingling extremities. She follows Dr. Perez as her porcelain enameler for management of hypertension. In the ED, her vital signs are stable. CBC showed MCV of 100.9. Coagulation panel negative. CMP showed potassium of 3.4. Troponin was less than 0.0122 with EKG showing sinus rhythm. Patient is admitted under observation status or chest pain, rule out acute coronary syndrome and cardiology evaluation. Troponins were trended and ACS was ruled out. Echocardiogram was ordered which showed normal LV systolic function, mildly enlarged right ventricle with normal RVSP, thickened aortic valve without significant stenosis, mild aortic regurgitation. Cardiology evaluated the patient and recommended no further intervention. Her chest pain resolved when she was evaluated on 06/07/2022. Her simvastatin was discontinued and she was started on Lipitor 40 mg by mouth at bedtime. She was also started on aspirin 81 mg by mouth daily. She is advised follow-up with her PCP within 1-2 days of discharge. Follow-up cardiology within 1 week of discharge. Patient and daughter advised to come back to the ED for worsening chest pain, shortness breath, palpitations or lightheadedness. Family verbalized understanding of the plan. General: [non toxic], [no distress], [appears at stated age] Derm: [warm], [dry] Head: [atraumatic], [normocephalic], [symmetric] Eyes: [EOMI], [no lid lag], [anicteric sclera] Mouth: [no lip lesion], [mucus membranes moist] Cardiovascular: [S1S2 reg], [no murmur], [positive posterior tibial pulse bilateral], Lungs: [CTA bilateral], [no rhonchi, no rales] , [no accessory muscle use] Abdominal: [soft], [ nontender to palpation], [no guarding], [no appreciable organomegaly] Ext: [no gross muscle atrophy], [no edema], [no contractures] Neuro: [ CN II-XI grossly intact], [no focal neuro deficits] Psych: [Alert], [oriented], [appropriate affect] Discharge Diagnosis: #Chest pain #Hypokalemia #Macrocytosis #Morbid obesity Chronic conditions: History of colon cancer, history of left breast cancer, diabetes mellitus, GERD, hypertension, dyslipidemia Pertinent Studies: CXR Echocardiogram Patient Condition at Discharge: Stable Plan - Discharge Summary Discharge Rx Participant: No New Discharge Prescriptions: New Nitroglycerin Sl Tabs [Nitrostat] 0.4 mg SUBLINGUAL Q5M PRN #20 tab PRN Reason: Chest Pain Aspirin 81 mg PO DAILY #30 tab Atorvastatin [Lipitor] 40 mg PO HS #30 tab Continue Isosorbide Mononitrate ER [Imdur] 30 mg PO DAILY amLODIPine [Norvasc] 5 mg PO DAILY Furosemide [Lasix] 20 mg PO DAILY Calcium Carbonate/Vitamin D3 [Calcium 600-Vit D3 5 Mcg (200 Iu)] 1 tab PO DAILY Letrozole [Femara] 2.5 mg PO DAILY Denosumab [Prolia] 60 mg SQ Q180D Cyanocobalamin (Vitamin B-12) [Vitamin B-12] 1,000 mcg PO DAILY traMADol HCL 50 mg PO Q6HR PRN PRN Reason: Pain Cholecalciferol (Vitamin D3) [Vitamin D3 (3000 Iu)] 75 mcg PO DAILY Discontinued Simvastatin [Zocor] 10 mg PO HS Meloxicam [Mobic] 7.5 mg PO BID Discharge Medication List Furosemide [Lasix] 20 mg PO DAILY 11/09/15 [History] Isosorbide Mononitrate ER [Imdur] 30 mg PO DAILY 11/09/15 [History] amLODIPine [Norvasc] 5 mg PO DAILY 11/09/15 [History] Calcium Carbonate/Vitamin D3 [Calcium 600-Vit D3 5 Mcg (200 Iu)] 1 tab PO DAILY 07/05/20 [History] Letrozole [Femara] 2.5 mg PO DAILY 07/05/20 [History] Cholecalciferol (Vitamin D3) [Vitamin D3 (3000 Iu)] 75 mcg PO DAILY 06/06/22 [History] Cyanocobalamin (Vitamin B-12) [Vitamin B-12] 1,000 mcg PO DAILY 06/06/22 [History] Denosumab [Prolia] 60 mg SQ Q180D 06/06/22 [History] traMADol HCL 50 mg PO Q6HR PRN 06/06/22 [History] Aspirin 81 mg PO DAILY #30 tab 06/07/22 [Rx] Atorvastatin [Lipitor] 40 mg PO HS #30 tab 06/07/22 [Rx] Nitroglycerin Sl Tabs [Nitrostat] 0.4 mg SUBLINGUAL Q5M PRN #20 tab 06/07/22 [Rx] Follow up Appointment(s)/Referral(s): Herberth Sargent DO [Primary Care Provider] - 1-2 days Eddie Clayton MD [STAFF PHYSICIAN] - 1 Week Activity/Diet/Wound Care/Special Instructions: Diet : Cardiac Follow-up PCP within 1-2 days of discharge. Follow-up with cardiology within 1 week of discharge. Take all medications as advised. Come back to the ED for worsening chest pain, shortness of breath, palpitations or lightheadedness. Discharge Disposition: HOME SELF-CARE
[2022-06-07 11:08] VITALS: RESP 16
[2022-06-07] MEDS ORDERED: ATORVASTATIN 40 MG TAB PO SCH (21:00)
== END 2022-06-07 12:30 | disposition home or self-care (01) ==
LOC: EC 11:51 → 6NMEDSUR 14:02
PROVIDERS: ADMIT Family Medicine; ATTEND Family Medicine
DX: R07.89 Other chest pain (principal); E87.6 Hypokalemia; D75.89 Other specified diseases of blood and blood-forming organs; E11.9 Type 2 diabetes mellitus without complications; E78.00 Pure hypercholesterolemia, unspecified; I10 Essential (primary) hypertension; K21.9 Gastro-esophageal reflux disease without esophagitis; I25.10 Atherosclerotic heart disease of native coronary artery without angina pectoris; E66.9 Obesity, unspecified; Z79.83 Long term (current) use of bisphosphonates; Z79.899 Other long term (current) drug therapy; Z79.811 Long term (current) use of aromatase inhibitors; Z79.1 Long term (current) use of non-steroidal anti-inflammatories (NSAID); Z85.038 Personal history of other malignant neoplasm of large intestine; Z85.42 Personal history of malignant neoplasm of other parts of uterus; Z90.710 Acquired absence of both cervix and uterus; Z85.3 Personal history of malignant neoplasm of breast; Z68.39 Body mass index [BMI] 39.0-39.9, adult
CPT/HCPCS: 96372 ×2; 99285; 36415; 93005; 93306; 80061; 80053; 83735; 84484; 85025; 85610; 85730; 71046; G0378 ×2; J1644 ×2

== ENCOUNTER → 2022-10-11 | Outpatient (CLI) | payer MEDICARE, BC ==
--- NOTE | 2022-10-12 08:47 | US ---
EXAMINATION TYPE: US venous doppler duplex LE BI DATE OF EXAM: 10/11/2022 4:35 PM COMPARISON: NONE CLINICAL HISTORY: 87-year-old female M79.89 OTHER SPECIFIED SOFT TISSUE DISORDERS. [place] SIDE PERFORMED: Bilateral TECHNIQUE: The lower extremity deep venous system is examined utilizing real time linear array sonog kavitha with graded compression, doppler sonography and color-flow sonography. FINDINGS: VESSELS IMAGED: Common Femoral Vein Deep Femoral Vein Greater Saphenous Vein * Femoral Vein Popliteal Vein Small Saphenous Vein * Proximal Calf Veins (* superficial vessels) Right Leg: Negative for DVT Left Leg: Negative for DVT. Incidental subcutaneous edema at the left calf. IMPRESSION: No evidence for DVT within the bilateral lower extremities imaged from the groin to the upper calves. Some subcutaneous soft tissue swelling along the left calf.
== END | disposition home or self-care (01) ==
LOC: RADUSWWP 16:10
PROVIDERS: ATTEND Family Medicine
DX: M79.89 Other specified soft tissue disorders (principal)
CPT/HCPCS: 93970